=== PATIENT | female | born 1940 | race Caucasian/White ===

== ENCOUNTER 2018-04-23 16:12 | Emergency (ER) | payer MEDICARE, MEDICAID ==
[~2018-04-23] VITALS: Ht 162.6 cm; Wt 70.5 kg
[~2018-04-23 16:12] MED LIST: ASPI-612 PO; FISH1CAP15 PO; FOLI0.4T2 PO; GABA-338 PO; HYDR-565 PO; IBAN150T8 PO; ISOS30TA6 PO; LUTE20TA PO; NITR0.4T51 SL; OMEP20TA5 PO; POTA2TAB6 PO; [UNRECOGNIZED DRUG - CODE] PO; crestor PO; omega xl PO; ranexa PO; stool softner PO
[2018-04-23] MEDS ORDERED: normal saline 1000ML IV soln IVB ONE (16:35)
[2018-04-23] MEDS ORDERED: ondansetron/PF 4mg/2ml inj IV ONE (16:35)
[2018-04-23] MEDS ORDERED: aspirin 81mg tab.chew PO ONE ×2 (16:35→17:45)
[2018-04-23 16:40] VITALS: BP 146/95
[2018-04-23 16:58] LABS: BASOPHILS % (AUTO) 0.1 % (0-1); EOSINOPHILS # (AUTO) 0.1 X10'3 (0-0.9); EOSINOPHILS % (AUTO) 1.7 % (0-6); HEMOGLOBIN 13.3 g/dl (12.0-16.0); LYMPHOCYTES # (AUTO) 0.7 X10'3 (1.1-4.8); LYMPHOCYTES % (AUTO) 8.5 % (21-51); MEAN CORPUSCULAR HEMOGLOBIN 33.5 PG (27.0-31.0); MEAN CORPUSCULAR VOLUME 98.7 FL (78-98); MEAN PLATELET VOLUME 7.2 FL (7.4-10.4); MONOCYTES # (AUTO) 0.6 X10'3 (0-0.9); MONOCYTES % (AUTO) 8.1 % (2-12); NEUTROPHILS # (AUTO) 6.5 X10'3 (1.8-7.7); NEUTROPHILS % (AUTO) 81.6 % (42-75); PLATELET COUNT 256 X10'3 (140-440); RED BLOOD COUNT 3.95 X10'6 (4.20-5.60); RED CELL DISTRIBUTION WIDTH 12.2 % (11.5-14.5); WHITE BLOOD COUNT 7.9 X10'3 (4.5-11.0)
[2018-04-23 17:07] LABS: INR 0.9 INR; PROTHROMBIN TIME 9.8 SECONDS (9.0-12.0)
[2018-04-23 17:14] LABS: ALANINE AMINOTRANSFERASE 67 U/L (12-78); ALBUMIN 3.8 G/DL (3.4-5.0); ALBUMIN/GLOBULIN RATIO 1.2 (1.1-1.5); ALKALINE PHOSPHATASE 103 IU/L (46-116); ANION GAP 11 (8-16); ASPARTATE AMINO TRANSFERASE 100 U/L (10-37); BILIRUBIN,TOTAL 0.6 MG/DL (0.1-1.0); BLOOD UREA NITROGEN 16 MG/DL (7-18); BUN/CREATININE RATIO 24.6 (6.6-38.0); CHLORIDE 99 MMOL/L (99-107); CREATININE 0.65 MG/DL (0.40-0.90); GLUCOSE 105 MG/DL (70-104); POTASSIUM 3.7 MMOL/L (3.5-5.1); SODIUM 135 MMOL/L (135-145); TOTAL CARBON DIOXIDE 24.6 MMOL/L (24-32); TOTAL PROTEIN 7.1 G/DL (6.4-8.2); eGFR 88 ML/MIN
[2018-04-23] MEDS ORDERED: FAMO40TA73 PO (17:34)
[2018-04-23] MEDS ORDERED: ONDA4TAB9 PO (17:34)
[2018-04-23] MEDS ORDERED: ondansetron 4mg rapidly disintigrating tab PO ONE (17:35)
== END 2018-04-23 18:21 | disposition home or self-care (01) ==
LOC: ER 16:14
DX: R10.13 Epigastric pain (principal); R11.0 Nausea; I25.10 Atherosclerotic heart disease of native coronary artery without angina pectoris; E78.00 Pure hypercholesterolemia, unspecified; M79.7 Fibromyalgia; Z90.49 Acquired absence of other specified parts of digestive tract; Z90.710 Acquired absence of both cervix and uterus; Z95.0 Presence of cardiac pacemaker; Z88.8 Allergy status to other drugs, medicaments and biological substances; Z88.5 Allergy status to narcotic agent; Z91.041 Radiographic dye allergy status; Z79.82 Long term (current) use of aspirin; Z79.899 Other long term (current) drug therapy
CPT/HCPCS: 36415; 71045; 80053; 83880; 84484; 85025; 85610; 93005; 99285; J7030; J2405

== ENCOUNTER 2018-06-03 13:06 | Inpatient (IN) | payer MEDICARE, MEDICAID ==
[~2018-06-03] VITALS: Ht 162.6 cm; Wt 76.7 kg
[2018-06-03] VITALS (7 sets, daily range): BP systolic 119–166; BP diastolic 50–87
[~2018-06-03 13:06] MED LIST changes: +FAMO40TA73 PO; +HYDR-4353 PO; -HYDR-565 PO
[2018-06-03] MEDS ORDERED: diphenhydrAMINE 50 mg/ml inj IV ONE (13:10)
[2018-06-03] MEDS ORDERED: metoclopramide 5 mg/ml inj IV ONE (13:10)
[2018-06-03] MEDS ORDERED: normal saline 1000ML IV soln IVB ONE ×3 (13:10→15:40)
[2018-06-03 13:33] LABS: BASOPHILS % (AUTO) 0.1 % (0-1); EOSINOPHILS % (AUTO) 0.1 % (0-6); HEMATOCRIT 51.4 % (35.0-45.0); HEMOGLOBIN 16.9 g/dl (12.0-16.0); LYMPHOCYTES # (AUTO) 0.4 X10'3 (1.1-4.8); LYMPHOCYTES % (AUTO) 4.7 % (21-51); MEAN CORPUSCULAR HEMOGLOBIN 32.2 PG (27.0-31.0); MEAN CORPUSCULAR HGB CONC 32.8 % (33.0-36.5); MEAN PLATELET VOLUME 7.3 FL (7.4-10.4); MONOCYTES # (AUTO) 0.7 X10'3 (0-0.9); MONOCYTES % (AUTO) 8.5 % (2-12); NEUTROPHILS # (AUTO) 7.2 X10'3 (1.8-7.7); NEUTROPHILS % (AUTO) 86.6 % (42-75); PLATELET COUNT 256 X10'3 (140-440); RED BLOOD COUNT 5.24 X10'6 (4.20-5.60); RED CELL DISTRIBUTION WIDTH 14.1 % (11.5-14.5); WHITE BLOOD COUNT 8.3 X10'3 (4.5-11.0)
[2018-06-03 13:51] LABS: PLATELET ESTIMATE NORMAL; TOTAL CELLS COUNTED 100
[2018-06-03 13:53] LABS: ALANINE AMINOTRANSFERASE 20 U/L (12-78); ALBUMIN 3.4 G/DL (3.4-5.0); ALBUMIN/GLOBULIN RATIO 1.1 (1.1-1.5); ALKALINE PHOSPHATASE 63 IU/L (46-116); ANION GAP 17 (8-16); ASPARTATE AMINO TRANSFERASE 23 U/L (10-37); BLOOD UREA NITROGEN 31 MG/DL (7-18); BUN/CREATININE RATIO 20.5 (6.6-38.0); CALCIUM 10.4 MG/DL (8.5-10.1); CHLORIDE 97 MMOL/L (99-107); CREATININE 1.51 MG/DL (0.40-0.90); GLUCOSE 282 MG/DL (70-104); LIPASE 148 U/L (73-393); POTASSIUM 4.1 MMOL/L (3.5-5.1); SODIUM 134 MMOL/L (135-145); TOTAL CARBON DIOXIDE 19.7 MMOL/L (24-32); TOTAL PROTEIN 6.5 G/DL (6.4-8.2); eGFR 33 ML/MIN
[2018-06-03] MEDS ORDERED: CefTRIAXone 2gm/D5W 50ml 50 ML IV ONE (14:10)
[2018-06-03] MEDS ORDERED: glycopyrrolate 0.2mg/ml inj IV ONE (14:10)
[2018-06-03 14:18] LABS: CLARITY,URINE CLEAR (Clear); COLOR,URINE AMBER (Yellow); GLUCOSE, URINE NEGATIVE (Neg); KETONES,URINE TRACE mg/dl (Neg); LEUKOCYTE ESTERASE ,URINE TRACE (Neg); OCCULT BLOOD,URINE NEGATIVE (Neg); PROTEIN,URINE TRACE mg/dl (Neg)
[2018-06-03 14:31] LABS: UA COLLECTION TYPE STRAIGHT CATH
[2018-06-03] MEDS ORDERED: metroNIDAZOLE-Flagyl 500mg/NS 100 ML IV STA (14:31)
[2018-06-03 14:35] LABS: BACTERIA,URINE NONE SEEN /HPF (Neg); RBC,URINE 0-2 /HPF (0-2); SQUAMOUS EPITHELIAL CELL,UR FEW /LPF (FEW); WBC,URINE 0-4 /HPF (0-4)
[2018-06-03 14:36] LABS: HYALINE CASTS 0-3 /LPF (NEGATIVE)
[2018-06-03] MEDS ORDERED: piperacillin/tazo 3.375gm/50ml 50 ML IV STA (14:41)
[2018-06-03] MEDS ORDERED: normal saline 1000ml 1,000 ML IV SCH (15:04)
[2018-06-03] MEDS ORDERED: potassium Cl 40MEQ/NS 500ml 500 ML IV PRN ×2 (15:05)
[2018-06-03] MEDS ORDERED: HYDROmorphone 1 mg/ml syringe IV PRN (15:05)
[2018-06-03] MEDS ORDERED: magnesium hydroxide 30ml (MOM) UD suspension PO PRN ×2 (15:05→19:00)
[2018-06-03] MEDS ORDERED: acetaminophen 650mg rectal suppository RC PRN (15:05)
[2018-06-03] MEDS ORDERED: magnesium Cl slow-release 64mg tablet PO PRN ×2 (15:05→19:00)
[2018-06-03] MEDS ORDERED: magnesium 4gm in 100ml NS 100 ML IV PRN ×2 (15:05→19:00)
[2018-06-03] MEDS ORDERED: bisacodyl 10mg suppository rectal RC PRN (15:05)
[2018-06-03] MEDS ORDERED: diphenhydrAMINE 50 mg/ml inj IV PRN (15:05)
[2018-06-03] MEDS ORDERED: magnesium 1gm/100ml D5W IVPB 100 ML IV PRN ×2 (15:05→19:00)
[2018-06-03] MEDS ORDERED: potassium Cl 20 mEq SR tablet PO PRN ×4 (15:05→19:00)
[2018-06-03] MEDS ORDERED: diphenhydrAMINE 25mg capsule PO PRN (15:05)
[2018-06-03] MEDS ORDERED: metoclopramide 5 mg/ml inj IV PRN (15:05)
[2018-06-03] MEDS ORDERED: levoFLOXACIN-Levaquin 750MG/D5 150 ML IV SCH (15:05)
[2018-06-03] MEDS ORDERED: mag hydrox/Alum hydrox/simeth 30ml oral suspension PO PRN (15:05)
[2018-06-03] MEDS: K and/or MAG REPLACEMENT MC SCH (15:05)
[2018-06-03] MEDS ORDERED: loperamide 2mg capsule PO ONE (15:40)
[2018-06-03 16:08] LABS: C DIFF ANTIGEN NEGATIVE (NEGATIVE); C DIFF SPECIMEN=DIARRHEA? ACCEPTABLE; C DIFFICILE TOXINS A&B NEGATIVE (Neg)
[2018-06-03] MEDS ORDERED: ROSU5TAB11 PO (16:15)
[2018-06-03] MEDS ORDERED: PREG150C PO (16:28)
[2018-06-03] MEDS ORDERED: dextrose ORAL solution 15 GM/59 ML bottle PO PRN ×2 (17:00)
[2018-06-03] MEDS ORDERED: sodium bicarbonate (8.4%) inj. 100 MEQ in sodium chloride 0.45% 1,000 ML IV SCH (17:00)
[2018-06-03] MEDS ORDERED: dextrose 50%-water 50ml dispensing syringe IV PRN (17:00)
[2018-06-03] MEDS ORDERED: glucagon, human recombinant 1mg kit SUBCUT PRN (17:00)
[2018-06-03] MEDS ORDERED: MESSAGE TO PHARMACY PO ONE (17:00)
[2018-06-03] MEDS ORDERED: nitroGLYCERIN 0.4mg SUBLingual tab SL PRN (17:05)
[2018-06-03] MEDS ORDERED: sodium phosphate inj. 15 MMOL in dextrose 5%-water 150 ML IV PRN (19:00)
[2018-06-03] MEDS ORDERED: ondansetron/PF 4mg/2ml inj IV PRN (19:00)
[2018-06-03] MEDS ORDERED: acetaminophen 325mg tablet PO PRN ×2 (19:00)
[2018-06-03] MEDS ORDERED: sodium phosphate inj. 30 MMOL in dextrose 5%-water 250 ML IV PRN (19:00)
[2018-06-03] MEDS: ondansetron/PF 4mg/2ml inj IV PRN (19:36)
[2018-06-03] MEDS: ranolazine 500mg SR tablet (Q12H) PO SCH (20:00)
[2018-06-03] MEDS ORDERED: heparin, porcine 5000 units/ml vial SQ SCH (20:00)
[2018-06-03] MEDS ORDERED: normal saline 1000ml 1,000 ML IV ONE (20:05)
[2018-06-03] MEDS ORDERED: temazepam 15mg capsule PO PRN (21:00)
[2018-06-03] MEDS: sodium bicarbonate (8.4%) inj. 150 MEQ in dextrose 5%-water 1,000 ML IV SCH (21:18)
[2018-06-03] MEDS: pantoprazole 40 MG vial IV SCH (21:55)
[2018-06-03] MEDS: piperacillin-tazo 2.25gm/50ml 50 ML IV SCH (21:55)
[2018-06-03] MEDS: heparin, porcine 5000 units/ml vial SQ SCH (21:56)
[2018-06-03] MEDS: insulin glargine (Lantus) pen - multi-dose SQ SCH (22:00)
[2018-06-04] VITALS (31 sets, daily range): BP systolic 81–168; BP diastolic 48–82
[2018-06-04] MEDS: metroNIDAZOLE-Flagyl 500mg/NS 100 ML IV SCH ×2 (00:17→08:12)
[2018-06-04] MEDS: piperacillin-tazo 2.25gm/50ml 50 ML IV SCH ×3 (02:30→20:38)
[2018-06-04] MEDS: insulin Lispro (HumaLOG) vial - multi-dose SQ SCH ×2 (02:32→08:21)
[2018-06-04 02:43] LABS: BASOPHILS % (AUTO) 0 % (0-1); EOSINOPHILS % (AUTO) 0.1 % (0-6); HEMATOCRIT 47.1 % (35.0-45.0); HEMOGLOBIN 15.7 g/dl (12.0-16.0); LYMPHOCYTES # (AUTO) 0.4 X10'3 (1.1-4.8); LYMPHOCYTES % (AUTO) 5.1 % (21-51); MEAN CORPUSCULAR HEMOGLOBIN 32.8 PG (27.0-31.0); MEAN CORPUSCULAR HGB CONC 33.3 % (33.0-36.5); MEAN CORPUSCULAR VOLUME 98.3 FL (78-98); MEAN PLATELET VOLUME 7.9 FL (7.4-10.4); MONOCYTES # (AUTO) 1.1 X10'3 (0-0.9); MONOCYTES % (AUTO) 12.7 % (2-12); NEUTROPHILS # (AUTO) 7.2 X10'3 (1.8-7.7); NEUTROPHILS % (AUTO) 82.1 % (42-75); PLATELET COUNT 234 X10'3 (140-440); RED BLOOD COUNT 4.79 X10'6 (4.20-5.60); RED CELL DISTRIBUTION WIDTH 13.5 % (11.5-14.5); WHITE BLOOD COUNT 8.8 X10'3 (4.5-11.0)
[2018-06-04 03:04] LABS: HEMOGLOBIN A1C 6.1 % (4.5-6.2)
[2018-06-04 03:16] LABS: ALANINE AMINOTRANSFERASE 13 U/L (12-78); ALBUMIN 2.3 G/DL (3.4-5.0); ALBUMIN/GLOBULIN RATIO 0.8 (1.1-1.5); ALKALINE PHOSPHATASE 40 IU/L (46-116); ANION GAP 13 (8-16); ASPARTATE AMINO TRANSFERASE 16 U/L (10-37); BILIRUBIN,TOTAL 0.5 MG/DL (0.1-1.0); BLOOD UREA NITROGEN 25 MG/DL (7-18); BUN/CREATININE RATIO 20.7 (6.6-38.0); CALCIUM 7.7 MG/DL (8.5-10.1); CHLORIDE 104 MMOL/L (99-107); CREATININE 1.21 MG/DL (0.40-0.90); GLUCOSE 325 MG/DL (70-104); MAGNESIUM 3.2 MG/DL (1.5-2.4); PHOSPHORUS 4.4 MG/DL (2.3-4.5); POTASSIUM 3.8 MMOL/L (3.5-5.1); SODIUM 138 MMOL/L (135-145); TOTAL CARBON DIOXIDE 21.3 MMOL/L (24-32); TOTAL PROTEIN 5.3 G/DL (6.4-8.2); eGFR 43 ML/MIN
[2018-06-04 03:55] LABS: TOTAL CELLS COUNTED 100
[2018-06-04 03:56] LABS: PLATELET ESTIMATE NORMAL; TOXIC GRANULATION 1+; TOXIC VACUOLATION 1+
[2018-06-04] MEDS: pregabalin 75mg capsule PO SCH (08:00)
[2018-06-04] MEDS: K and/or MAG REPLACEMENT MC SCH (08:00)
[2018-06-04] MEDS: ranolazine 500mg SR tablet (Q12H) PO SCH ×2 (08:00→20:00)
[2018-06-04] MEDS: atorvastatin 20mg tablet PO SCH (08:00)
[2018-06-04] MEDS: isosorbide mononitrate 30mg tab.SR.24H PO SCH (08:00)
[2018-06-04] MEDS: HYDROmorphone 1 mg/ml syringe IV PRN ×2 (08:11→18:56)
[2018-06-04] MEDS: heparin, porcine 5000 units/ml vial SQ SCH ×2 (08:11→20:00)
[2018-06-04] MEDS: pantoprazole 40 MG vial IV SCH (08:11)
[2018-06-04] MEDS: sodium bicarbonate (8.4%) inj. 150 MEQ in dextrose 5%-water 1,000 ML IV SCH (08:12)
[2018-06-04] MEDS: normal saline 1000ml 1,000 ML IV SCH ×2 (13:32→20:12)
[2018-06-04] MEDS ORDERED: LIDOcaine 1% (10mg/ml) 2ml vial ONE (14:09)
[2018-06-04] MEDS ORDERED: fentaNYL /PF 50mcg/ml 5ml ampule ONE (16:13)
[2018-06-04] MEDS ORDERED: midazolam 2 mg/2 ml injection ONE (16:13)
[2018-06-04] MEDS ORDERED: propofol inj 20 ML IV ONE (16:13)
[2018-06-04] MEDS ORDERED: rocuronium 10mg/ml inj IV ONE (16:13)
[2018-06-04] MEDS ORDERED: NORepinephrine bitartrate 8 MG in NS 250 ML BAG (32 mcg/ml) IV ONE (16:21)
[2018-06-04] MEDS ORDERED: sevoflurane 250ml liquid IH ONE (16:21)
[2018-06-04] MEDS ORDERED: NORepinephrine 1 mg/ml inj IV ONE (17:00)
[2018-06-04] MEDS ORDERED: NORepinephrine 8mg/ 250ml NS 250 ML IV ONE (17:00)
[2018-06-04] MEDS ORDERED: normal saline 1000ml 1,000 ML IV ONE (17:27)
[2018-06-04] MEDS ORDERED: ondansetron/PF 4mg/2ml inj IV PRN (17:30)
[2018-06-04] MEDS ORDERED: HYDROmorphone inj. 0.5 MG/0.5 ML DISP.SYRIN IV PRN ×2 (17:30)
[2018-06-04] MEDS ORDERED: phenylephrine 10mg/ml inj. ONE (17:42)
[2018-06-04 18:56] LABS: ABG BASE EXCESS -3.3 mmol/L (-2.0-3.0); ABG HCO3 20.3 mmol/L (22.0-26.0); ABG OXYGEN SATURATION 98.9 % (95-98); ABG PCO2 (T) 32.1 mmHg (32.0-45.0); ABG PH (T) 7.417 (7.350-7.450); ABG PO2 (T) 161.6 mmHg (83-108); ALLEN'S TEST Positive; FCOHb 0.7 % (0.5-1.5); FO2Hb 98.2 % (94-100); MINUTE VOLUME 6 L/min; PATIENT TEMPERATURE 36.7; PEEP 5 cm H2O; RESPIRATORY RATE 12 b/min; RESPIRATORY RATE (OBSERVED) 13 b/min; TIDAL VOLUME 500 mL; TOTAL HEMOGLOBIN 14.2 G/dl (12.0-16.0)
[2018-06-04] MEDS: fluconazole-Diflucan 200mg/NS 100 ML IV SCH (18:56)
[2018-06-04] MEDS: midazolam 100mg in NS 100ml 100 ML IV PRN (19:25)
[2018-06-04] MEDS: FENTANYL-0.9 % NACL/PF 100 ML IV PRN (19:26)
[2018-06-04] MEDS: insulin glargine (Lantus) pen - multi-dose SQ SCH (21:00)
[2018-06-05] VITALS (24 sets, daily range): BP systolic 90–134; BP diastolic 49–65
[2018-06-05] MEDS: normal saline 1000ml 1,000 ML IV SCH ×4 (02:06→20:36)
[2018-06-05] MEDS: piperacillin-tazo 2.25gm/50ml 50 ML IV SCH ×4 (02:08→20:29)
[2018-06-05 03:13] LABS: HEMATOCRIT 38.5 % (35.0-45.0); MEAN CORPUSCULAR HEMOGLOBIN 33.2 PG (27.0-31.0); MEAN CORPUSCULAR HGB CONC 33.8 % (33.0-36.5); MEAN CORPUSCULAR VOLUME 98.4 FL (78-98); MEAN PLATELET VOLUME 8.6 FL (7.4-10.4); NEUTROPHILS % (AUTO) 80.2 % (42-75); PLATELET COUNT 175 X10'3 (140-440); RED CELL DISTRIBUTION WIDTH 13.3 % (11.5-14.5)
[2018-06-05 03:14] LABS: BASOPHILS % (AUTO) 0.1 % (0-1); EOSINOPHILS % (AUTO) 0 % (0-6); LYMPHOCYTES # (AUTO) 0.7 X10'3 (1.1-4.8); MONOCYTES # (AUTO) 0.4 X10'3 (0-0.9); MONOCYTES % (AUTO) 7.7 % (2-12); NEUTROPHILS # (AUTO) 4.6 X10'3 (1.8-7.7); RED BLOOD COUNT 3.92 X10'6 (4.20-5.60); WHITE BLOOD COUNT 5.7 X10'3 (4.5-11.0)
[2018-06-05 03:23] LABS: ALANINE AMINOTRANSFERASE 11 U/L (12-78); ALBUMIN 1.8 G/DL (3.4-5.0); ALBUMIN/GLOBULIN RATIO 0.7 (1.1-1.5); ALKALINE PHOSPHATASE 29 IU/L (46-116); ANION GAP 11 (8-16); ASPARTATE AMINO TRANSFERASE 19 U/L (10-37); BILIRUBIN,TOTAL 0.4 MG/DL (0.1-1.0); BLOOD UREA NITROGEN 22 MG/DL (7-18); BUN/CREATININE RATIO 29.3 (6.6-38.0); CALCIUM 6.8 MG/DL (8.5-10.1); CHLORIDE 110 MMOL/L (99-107); CREATININE 0.75 MG/DL (0.40-0.90); GLUCOSE 118 MG/DL (70-104); MAGNESIUM 2.6 MG/DL (1.5-2.4); PHOSPHORUS 2.7 MG/DL (2.3-4.5); POTASSIUM 3.6 MMOL/L (3.5-5.1); SODIUM 143 MMOL/L (135-145); TOTAL CARBON DIOXIDE 22.2 MMOL/L (24-32); TOTAL PROTEIN 4.5 G/DL (6.4-8.2); eGFR 75 ML/MIN
[2018-06-05] MEDS ORDERED: albumin (Human) 5% 250ml BOTTLE IV STA (03:54)
[2018-06-05 04:57] LABS: PLATELET ESTIMATE NORMAL; POLYCHROMASIA FEW; TOTAL CELLS COUNTED 100
[2018-06-05 04:58] LABS: BURR CELLS 2+; TOXIC VACUOLATION FEW
[2018-06-05] MEDS: isosorbide mononitrate 30mg tab.SR.24H PO SCH (08:00)
[2018-06-05] MEDS: ranolazine 500mg SR tablet (Q12H) PO SCH ×2 (08:00→20:00)
[2018-06-05] MEDS: K and/or MAG REPLACEMENT MC SCH (08:00)
[2018-06-05] MEDS: pregabalin 75mg capsule PO SCH (08:00)
[2018-06-05] MEDS: atorvastatin 20mg tablet PO SCH (08:00)
[2018-06-05] MEDS: pantoprazole 40 MG vial IV SCH (08:20)
[2018-06-05] MEDS: heparin, porcine 5000 units/ml vial SQ SCH (08:22)
[2018-06-05] MEDS: fluconazole-Diflucan 200mg/NS 100 ML IV SCH (09:00)
[2018-06-05] MEDS ORDERED: Potassium Cl inj 40 MEQ in normal saline 250ml IV soln 230 ML IV ONE (10:15)
[2018-06-05] MEDS ORDERED: Dextrose 10%-water IV solution 1,000 ML IV PRN (12:19)
[2018-06-05] MEDS ORDERED: fat emulsion IV 100 ML, MVI, adult No.4 with vit. K 5 ML, Trace element-5 inj. 0.5 ML i... IV SCH ×4 (12:19)
[2018-06-05] MEDS ORDERED: magnesium 4gm in 100ml NS 100 ML IV PRN (12:20)
[2018-06-05] MEDS ORDERED: magnesium 1gm/100ml D5W IVPB 100 ML IV PRN (12:20)
[2018-06-05] MEDS ORDERED: magnesium Cl slow-release 64mg tablet PO PRN (12:20)
[2018-06-05] MEDS: FENTANYL-0.9 % NACL/PF 100 ML IV PRN (12:39)
[2018-06-05 14:42] LABS: ALANINE AMINOTRANSFERASE 7 U/L (12-78); ALBUMIN 2.2 G/DL (3.4-5.0); ALBUMIN/GLOBULIN RATIO 0.9 (1.1-1.5); ALKALINE PHOSPHATASE 26 IU/L (46-116); ANION GAP 14 (8-16); ASPARTATE AMINO TRANSFERASE 15 U/L (10-37); BILIRUBIN,TOTAL 0.6 MG/DL (0.1-1.0); BLOOD UREA NITROGEN 18 MG/DL (7-18); BUN/CREATININE RATIO 25.4 (6.6-38.0); CALCIUM 6.9 MG/DL (8.5-10.1); CHLORIDE 111 MMOL/L (99-107); CREATININE 0.71 MG/DL (0.40-0.90); GLUCOSE 98 MG/DL (70-104); MAGNESIUM 2.5 MG/DL (1.5-2.4); PHOSPHORUS 1.5 MG/DL (2.3-4.5); PREALBUMIN 10.2 MG/DL (19-36); SODIUM 143 MMOL/L (135-145); TOTAL CARBON DIOXIDE 18.5 MMOL/L (24-32); TOTAL PROTEIN 4.7 G/DL (6.4-8.2); TRIGLYCERIDES 121 MG/DL (20-135); eGFR 79 ML/MIN
[2018-06-05] MEDS: fat emulsion IV 100 ML, MVI, adult No.4 with vit. K 5 ML, Trace element-5 inj. 0.5 ML i... IV SCH ×4 (18:59)
[2018-06-05] MEDS: lactobacillus rhamnosus 10,000 MMU CELLS/CAPSULE PO SCH (20:00)
[2018-06-05] MEDS: enoxaparin 40mg/0.4ml syringe SUBCUT SCH (20:29)
[2018-06-05] MEDS: enoxaparin 30mg/0.3ml syringe SUBCUT SCH (20:29)
[2018-06-05] MEDS ORDERED: DOPamine 400mg/D5W 250ml 250 ML IV ONE (20:32)
[2018-06-05] MEDS: insulin glargine (Lantus) pen - multi-dose SQ SCH (21:00)
[2018-06-05] MEDS ORDERED: sodium phosphate inj. 30 MMOL in dextrose 5%-water 250 ML IV PRN (21:15)
[2018-06-05] MEDS ORDERED: sodium phosphate inj. 15 MMOL in dextrose 5%-water 150 ML IV PRN (21:15)
[2018-06-06] VITALS (24 sets, daily range): BP systolic 86–151; BP diastolic 51–150
[2018-06-06] MEDS: piperacillin-tazo 2.25gm/50ml 50 ML IV SCH ×4 (02:36→20:01)
[2018-06-06 03:48] LABS: BASOPHILS % (AUTO) 0.1 % (0-1); HEMOGLOBIN 10.6 g/dl (12.0-16.0); RED BLOOD COUNT 3.13 X10'6 (4.20-5.60)
[2018-06-06 03:54] LABS: EOSINOPHILS % (AUTO) 0.2 % (0-6); HEMATOCRIT 30.4 % (35.0-45.0); LYMPHOCYTES # (AUTO) 0.6 X10'3 (1.1-4.8); LYMPHOCYTES % (AUTO) 5.9 % (21-51); MEAN CORPUSCULAR HEMOGLOBIN 33.8 PG (27.0-31.0); MEAN CORPUSCULAR HGB CONC 34.9 % (33.0-36.5); MEAN CORPUSCULAR VOLUME 97.1 FL (78-98); MEAN PLATELET VOLUME 8.6 FL (7.4-10.4); MONOCYTES # (AUTO) 0.4 X10'3 (0-0.9); NEUTROPHILS # (AUTO) 8.9 X10'3 (1.8-7.7); NEUTROPHILS % (AUTO) 89.8 % (42-75); PLATELET COUNT 139 X10'3 (140-440); RED CELL DISTRIBUTION WIDTH 13.1 % (11.5-14.5); WHITE BLOOD COUNT 9.9 X10'3 (4.5-11.0)
[2018-06-06 03:59] LABS: ALANINE AMINOTRANSFERASE 12 U/L (12-78); ALBUMIN 1.9 G/DL (3.4-5.0); ALBUMIN/GLOBULIN RATIO 0.7 (1.1-1.5); ALKALINE PHOSPHATASE 35 IU/L (46-116); ANION GAP 13 (8-16); ASPARTATE AMINO TRANSFERASE 15 U/L (10-37); BILIRUBIN,TOTAL 0.6 MG/DL (0.1-1.0); BLOOD UREA NITROGEN 18 MG/DL (7-18); BUN/CREATININE RATIO 23.1 (6.6-38.0); CALCIUM 7.4 MG/DL (8.5-10.1); CHLORIDE 110 MMOL/L (99-107); CREATININE 0.78 MG/DL (0.40-0.90); GLUCOSE 164 MG/DL (70-104); MAGNESIUM 2.3 MG/DL (1.5-2.4); PHOSPHORUS 2.6 MG/DL (2.3-4.5); POTASSIUM 3.1 MMOL/L (3.5-5.1); SODIUM 144 MMOL/L (135-145); TOTAL CARBON DIOXIDE 20.7 MMOL/L (24-32); TOTAL PROTEIN 4.5 G/DL (6.4-8.2); eGFR 71 ML/MIN
[2018-06-06 04:15] LABS: TOTAL CELLS COUNTED 100
[2018-06-06 04:16] LABS: PLATELET ESTIMATE DECREASED; TOXIC GRANULATION 1+; TOXIC VACUOLATION FEW
[2018-06-06 04:17] LABS: BURR CELLS FEW
[2018-06-06 04:26] LABS: ABG BASE EXCESS -5.8 mmol/L (-2.0-3.0); ABG HCO3 15.5 mmol/L (22.0-26.0); ABG OXYGEN SATURATION 98.1 % (95-98); ABG PCO2 (T) 20.5 mmHg (32.0-45.0); ABG PH (T) 7.498 (7.350-7.450); FCOHb 0.3 % (0.5-1.5); FMetHb 0.3 % (0.3-1.12); FO2Hb 97.5 % (94-100); MINUTE VOLUME 10 L/min; PATIENT TEMPERATURE 37.5; PEEP 5 cm H2O; RESPIRATORY RATE 18 b/min; RESPIRATORY RATE (OBSERVED) 18 b/min; TIDAL VOLUME 500 mL; TOTAL HEMOGLOBIN 10.7 G/dl (12.0-16.0)
[2018-06-06] MEDS: normal saline 1000ml 1,000 ML IV SCH ×4 (05:32→20:03)
[2018-06-06] MEDS: fat emulsion IV 100 ML, MVI, adult No.4 with vit. K 5 ML, Trace element-5 inj. 0.5 ML i... IV SCH ×12 (06:17→18:34)
[2018-06-06] MEDS: enoxaparin 30mg/0.3ml syringe SUBCUT SCH ×2 (07:22→20:02)
[2018-06-06] MEDS: atorvastatin 20mg tablet PO SCH (07:23)
[2018-06-06] MEDS: lactobacillus rhamnosus 10,000 MMU CELLS/CAPSULE PO SCH ×2 (07:23→20:02)
[2018-06-06] MEDS: enoxaparin 40mg/0.4ml syringe SUBCUT SCH ×2 (07:23→20:02)
[2018-06-06] MEDS: fluconazole-Diflucan 200mg/NS 100 ML IV SCH (07:24)
[2018-06-06] MEDS: pantoprazole 40 MG vial IV SCH (07:24)
[2018-06-06] MEDS: K and/or MAG REPLACEMENT MC SCH (07:25)
[2018-06-06] MEDS: isosorbide mononitrate 30mg tab.SR.24H PO SCH (07:26)
[2018-06-06] MEDS: ranolazine 500mg SR tablet (Q12H) PO SCH (07:26)
[2018-06-06] MEDS: pregabalin 75mg capsule PO SCH (07:26)
[2018-06-06] MEDS ORDERED: ipratropium/albuterol 3ml nebule NEB PRN (11:00)
[2018-06-06] MEDS ORDERED: CADD PCA waste documentation MC PRN (11:00)
[2018-06-06] MEDS: HYDROmorphone/NS 1 mg/ml CADD 50 ML IV SCH ×7 (11:00→23:00)
[2018-06-06] MEDS ORDERED: racepinephrine 11.25mg/0.5ml nebule NEB PRN (11:00)
[2018-06-06] MEDS ORDERED: naloxone 0.4 mg/ml inj IV PRN (11:00)
[2018-06-06] MEDS: ipratropium/albuterol 3ml nebule NEB SCH ×2 (15:00→21:00)
[2018-06-06] MEDS: insulin regular, human vial - multi-dose SQ SCH ×2 (16:14→20:22)
[2018-06-06] MEDS ORDERED: docusate sod 100mg capsule PO SCH (20:00)
[2018-06-06] MEDS: sennosides/docusate sodium tablet PO SCH (20:02)
[2018-06-06] MEDS: FENTANYL-0.9 % NACL/PF 100 ML IV PRN (20:04)
[2018-06-06] MEDS: insulin glargine (Lantus) pen - multi-dose SQ SCH (20:20)
[2018-06-07] VITALS (24 sets, daily range): BP systolic 96–157; BP diastolic 50–90
[2018-06-07] MEDS: midazolam 100mg in NS 100ml 100 ML IV PRN (00:09)
[2018-06-07] MEDS: HYDROmorphone/NS 1 mg/ml CADD 50 ML IV SCH ×9 (01:00→15:05)
[2018-06-07] MEDS: normal saline 1000ml 1,000 ML IV SCH ×2 (01:46→08:12)
[2018-06-07] MEDS: piperacillin-tazo 2.25gm/50ml 50 ML IV SCH ×4 (02:39→20:47)
[2018-06-07] MEDS: insulin regular, human vial - multi-dose SQ SCH ×4 (02:47→20:57)
[2018-06-07 03:23] LABS: ALANINE AMINOTRANSFERASE 7 U/L (12-78); ALBUMIN 1.5 G/DL (3.4-5.0); ALBUMIN/GLOBULIN RATIO 0.6 (1.1-1.5); ALKALINE PHOSPHATASE 38 IU/L (46-116); ANION GAP 8 (8-16); ASPARTATE AMINO TRANSFERASE 10 U/L (10-37); BILIRUBIN,TOTAL 0.3 MG/DL (0.1-1.0); BLOOD UREA NITROGEN 19 MG/DL (7-18); BUN/CREATININE RATIO 32.2 (6.6-38.0); CALCIUM 7.7 MG/DL (8.5-10.1); CHLORIDE 112 MMOL/L (99-107); CREATININE 0.59 MG/DL (0.40-0.90); GLUCOSE 211 MG/DL (70-104); MAGNESIUM 1.7 MG/DL (1.5-2.4); PHOSPHORUS 1.6 MG/DL (2.3-4.5); POTASSIUM 3.3 MMOL/L (3.5-5.1); SODIUM 143 MMOL/L (135-145); TOTAL CARBON DIOXIDE 23.1 MMOL/L (24-32); TOTAL PROTEIN 4.2 G/DL (6.4-8.2); eGFR > 90 ML/MIN
[2018-06-07 03:35] LABS: BASOPHILS % (AUTO) 0.1 % (0-1); EOSINOPHILS # (AUTO) 0.1 X10'3 (0-0.9); EOSINOPHILS % (AUTO) 1.5 % (0-6); HEMATOCRIT 28.9 % (35.0-45.0); HEMOGLOBIN 9.8 g/dl (12.0-16.0); LYMPHOCYTES # (AUTO) 0.7 X10'3 (1.1-4.8); LYMPHOCYTES % (AUTO) 7.9 % (21-51); MEAN CORPUSCULAR HEMOGLOBIN 33.2 PG (27.0-31.0); MEAN CORPUSCULAR HGB CONC 33.8 % (33.0-36.5); MEAN CORPUSCULAR VOLUME 98.2 FL (78-98); MEAN PLATELET VOLUME 8.2 FL (7.4-10.4); MONOCYTES # (AUTO) 0.6 X10'3 (0-0.9); MONOCYTES % (AUTO) 6.5 % (2-12); NEUTROPHILS # (AUTO) 7.3 X10'3 (1.8-7.7); PLATELET COUNT 139 X10'3 (140-440); RED BLOOD COUNT 2.94 X10'6 (4.20-5.60); RED CELL DISTRIBUTION WIDTH 13.6 % (11.5-14.5); WHITE BLOOD COUNT 8.7 X10'3 (4.5-11.0)
[2018-06-07] MEDS: ipratropium/albuterol 3ml nebule NEB SCH ×4 (04:11→21:05)
[2018-06-07 04:25] LABS: ABG BASE EXCESS -5.4 mmol/L (-2.0-3.0); ABG HCO3 18.1 mmol/L (22.0-26.0); ABG OXYGEN SATURATION 96.3 % (95-98); ABG PCO2 (T) 28.7 mmHg (32.0-45.0); ABG PH (T) 7.418 (7.350-7.450); ABG PO2 (T) 88.5 mmHg (83-108); ALLEN'S TEST Positive; FCOHb 0.1 % (0.5-1.5); FMetHb 0.3 % (0.3-1.12); FO2Hb 95.9 % (94-100); MINUTE VOLUME 8 L/min; PEEP 5 cm H2O; RESPIRATORY RATE (OBSERVED) 18 b/min; TOTAL HEMOGLOBIN 10.1 G/dl (12.0-16.0)
[2018-06-07] MEDS: potassium Cl 40MEQ/250ML bag 250 ML IV PRN (05:11)
[2018-06-07] MEDS: fat emulsion IV 100 ML, MVI, adult No.4 with vit. K 5 ML, Trace element-5 inj. 0.5 ML i... IV SCH ×16 (05:32→19:08)
[2018-06-07] MEDS: isosorbide mononitrate 30mg tab.SR.24H PO SCH (06:49)
[2018-06-07] MEDS: enoxaparin 40mg/0.4ml syringe SUBCUT SCH ×2 (07:56→20:50)
[2018-06-07] MEDS: lactobacillus rhamnosus 10,000 MMU CELLS/CAPSULE PO SCH ×2 (07:57→20:49)
[2018-06-07] MEDS: pregabalin 75mg capsule PO SCH (07:57)
[2018-06-07] MEDS: enoxaparin 30mg/0.3ml syringe SUBCUT SCH ×2 (07:57→20:50)
[2018-06-07] MEDS: atorvastatin 20mg tablet PO SCH (07:57)
[2018-06-07] MEDS: fluconazole-Diflucan 200mg/NS 100 ML IV SCH (07:57)
[2018-06-07] MEDS: pantoprazole 40 MG vial IV SCH (07:57)
[2018-06-07] MEDS: sennosides/docusate sodium tablet PO SCH ×2 (07:58→20:00)
[2018-06-07] MEDS: K and/or MAG REPLACEMENT MC SCH (08:00)
[2018-06-07] MEDS ORDERED: magnesium 1gm/100ml D5W IVPB 100 ML IV ONE (09:45)
[2018-06-07] MEDS ORDERED: furosemide 20 MG/2 ML vial IV ONE (09:45)
[2018-06-07] MEDS: metoprolol tartrate 12.5mg (1/2 tablet) PO SCH ×2 (10:35→20:48)
[2018-06-07] MEDS: insulin glargine (Lantus) pen - multi-dose SQ SCH (20:59)
[2018-06-07] MEDS: FENTANYL-0.9 % NACL/PF 100 ML IV PRN (22:15)
[2018-06-08] VITALS (24 sets, daily range): BP systolic 85–187; BP diastolic 56–99
[2018-06-08] MEDS: piperacillin-tazo 2.25gm/50ml 50 ML IV SCH ×4 (02:53→20:37)
[2018-06-08] MEDS: insulin regular, human vial - multi-dose SQ SCH ×4 (02:57→20:43)
[2018-06-08 03:03] LABS: BASOPHILS % (AUTO) 0.1 % (0-1); EOSINOPHILS # (AUTO) 0.1 X10'3 (0-0.9); EOSINOPHILS % (AUTO) 1.1 % (0-6); HEMOGLOBIN 9.7 g/dl (12.0-16.0); LYMPHOCYTES # (AUTO) 0.6 X10'3 (1.1-4.8); LYMPHOCYTES % (AUTO) 6.7 % (21-51); MEAN CORPUSCULAR HEMOGLOBIN 33.5 PG (27.0-31.0); MEAN CORPUSCULAR HGB CONC 34.6 % (33.0-36.5); MEAN CORPUSCULAR VOLUME 96.8 FL (78-98); MEAN PLATELET VOLUME 8.2 FL (7.4-10.4); MONOCYTES # (AUTO) 1.1 X10'3 (0-0.9); MONOCYTES % (AUTO) 12.1 % (2-12); PLATELET COUNT 162 X10'3 (140-440); RED CELL DISTRIBUTION WIDTH 13.6 % (11.5-14.5); WHITE BLOOD COUNT 8.8 X10'3 (4.5-11.0)
[2018-06-08] MEDS: ipratropium/albuterol 3ml nebule NEB SCH ×4 (03:12→21:16)
[2018-06-08 03:20] LABS: ALANINE AMINOTRANSFERASE 8 U/L (12-78); ALBUMIN 1.5 G/DL (3.4-5.0); ALBUMIN/GLOBULIN RATIO 0.5 (1.1-1.5); ALKALINE PHOSPHATASE 60 IU/L (46-116); ANION GAP 8 (8-16); ASPARTATE AMINO TRANSFERASE 11 U/L (10-37); BILIRUBIN,TOTAL 0.3 MG/DL (0.1-1.0); BLOOD UREA NITROGEN 21 MG/DL (7-18); BUN/CREATININE RATIO 31.3 (6.6-38.0); CALCIUM 8.4 MG/DL (8.5-10.1); CHLORIDE 108 MMOL/L (99-107); CREATININE 0.67 MG/DL (0.40-0.90); GLUCOSE 177 MG/DL (70-104); MAGNESIUM 1.6 MG/DL (1.5-2.4); PHOSPHORUS 3.1 MG/DL (2.3-4.5); POTASSIUM 3.5 MMOL/L (3.5-5.1); SODIUM 141 MMOL/L (135-145); TOTAL CARBON DIOXIDE 24.9 MMOL/L (24-32); TOTAL PROTEIN 4.6 G/DL (6.4-8.2); eGFR 85 ML/MIN
[2018-06-08 03:31] LABS: ABG BASE EXCESS -2.2 mmol/L (-2.0-3.0); ABG OXYGEN SATURATION 94.1 % (95-98); ABG PCO2 (T) 30.2 mmHg (32.0-45.0); ABG PH (T) 7.458 (7.350-7.450); ABG PO2 (T) 66.5 mmHg (83-108); ALLEN'S TEST Positive; FCOHb 0.2 % (0.5-1.5); FMetHb 0.3 % (0.3-1.12); FO2Hb 93.6 % (94-100); MINUTE VOLUME 9 L/min; PATIENT TEMPERATURE 36.8; PEEP 5 cm H2O; RESPIRATORY RATE (OBSERVED) 19 b/min; TOTAL HEMOGLOBIN 10.6 G/dl (12.0-16.0)
[2018-06-08] MEDS ORDERED: metoprolol tartrate 1mg/ml inj IV ONE (04:05)
[2018-06-08] MEDS: fat emulsion IV 100 ML, MVI, adult No.4 with vit. K 5 ML, Trace element-5 inj. 0.5 ML i... IV SCH ×8 (05:43→19:19)
[2018-06-08] MEDS: pantoprazole 40 MG vial IV SCH (07:24)
[2018-06-08] MEDS: metoprolol tartrate 12.5mg (1/2 tablet) PO SCH (07:25)
[2018-06-08] MEDS: sennosides/docusate sodium tablet PO SCH ×2 (07:25→20:38)
[2018-06-08] MEDS: atorvastatin 20mg tablet PO SCH (07:25)
[2018-06-08] MEDS: pregabalin 75mg capsule PO SCH (07:25)
[2018-06-08] MEDS: isosorbide mononitrate 30mg tab.SR.24H PO SCH (07:25)
[2018-06-08] MEDS: lactobacillus rhamnosus 10,000 MMU CELLS/CAPSULE PO SCH ×2 (07:25→20:37)
[2018-06-08] MEDS: enoxaparin 30mg/0.3ml syringe SUBCUT SCH ×2 (07:27→20:39)
[2018-06-08] MEDS: enoxaparin 40mg/0.4ml syringe SUBCUT SCH ×2 (07:27→20:38)
[2018-06-08] MEDS: fluconazole-Diflucan 200mg/NS 100 ML IV SCH (07:33)
[2018-06-08 07:39] LABS: PLATELET ESTIMATE NORMAL; TOTAL CELLS COUNTED 100
[2018-06-08 07:40] LABS: POLYCHROMASIA FEW
[2018-06-08] MEDS: K and/or MAG REPLACEMENT MC SCH (08:00)
[2018-06-08] MEDS ORDERED: furosemide 20 MG/2 ML vial IV ONE (09:15)
[2018-06-08] MEDS ORDERED: metoprolol tartrate 12.5mg (1/2 tablet) PO ONE (09:15)
[2018-06-08] MEDS: esmolol/sodium cl bag 250 ML IV SCH ×4 (11:14→20:45)
[2018-06-08] MEDS: normal saline 1000ml 1,000 ML IV SCH (11:15)
[2018-06-08] MEDS: metoprolol tartrate 25mg tablet PO SCH (20:37)
[2018-06-08] MEDS: insulin glargine (Lantus) pen - multi-dose SQ SCH (21:01)
[2018-06-09] VITALS (24 sets, daily range): BP systolic 134–189; BP diastolic 63–102
[2018-06-09] MEDS: piperacillin-tazo 2.25gm/50ml 50 ML IV SCH ×2 (02:35→07:34)
[2018-06-09] MEDS: esmolol/sodium cl bag 250 ML IV SCH ×3 (02:39→12:43)
[2018-06-09 02:57] LABS: BASOPHILS % (AUTO) 0.1 % (0-1); EOSINOPHILS # (AUTO) 0.2 X10'3 (0-0.9); EOSINOPHILS % (AUTO) 1.6 % (0-6); HEMATOCRIT 27.7 % (35.0-45.0); HEMOGLOBIN 9.4 g/dl (12.0-16.0); LYMPHOCYTES # (AUTO) 0.9 X10'3 (1.1-4.8); LYMPHOCYTES % (AUTO) 6.9 % (21-51); MEAN CORPUSCULAR HEMOGLOBIN 32.9 PG (27.0-31.0); MEAN CORPUSCULAR HGB CONC 33.8 % (33.0-36.5); MEAN CORPUSCULAR VOLUME 97.4 FL (78-98); MEAN PLATELET VOLUME 9.4 FL (7.4-10.4); MONOCYTES # (AUTO) 1.2 X10'3 (0-0.9); MONOCYTES % (AUTO) 8.5 % (2-12); NEUTROPHILS # (AUTO) 11.3 X10'3 (1.8-7.7); NEUTROPHILS % (AUTO) 82.9 % (42-75); PLATELET COUNT 185 X10'3 (140-440); RED BLOOD COUNT 2.85 X10'6 (4.20-5.60); RED CELL DISTRIBUTION WIDTH 13.4 % (11.5-14.5); WHITE BLOOD COUNT 13.6 X10'3 (4.5-11.0)
[2018-06-09] MEDS: ipratropium/albuterol 3ml nebule NEB SCH ×4 (03:14→21:49)
[2018-06-09 03:19] LABS: ALANINE AMINOTRANSFERASE 26 U/L (12-78); ALBUMIN 1.5 G/DL (3.4-5.0); ALBUMIN/GLOBULIN RATIO 0.4 (1.1-1.5); ALKALINE PHOSPHATASE 134 IU/L (46-116); ANION GAP 10 (8-16); ASPARTATE AMINO TRANSFERASE 46 U/L (10-37); BILIRUBIN,TOTAL 0.6 MG/DL (0.1-1.0); BLOOD UREA NITROGEN 21 MG/DL (7-18); BUN/CREATININE RATIO 37.5 (6.6-38.0); CALCIUM 8.7 MG/DL (8.5-10.1); CHLORIDE 106 MMOL/L (99-107); CREATININE 0.56 MG/DL (0.40-0.90); GLUCOSE 131 MG/DL (70-104); MAGNESIUM 1.6 MG/DL (1.5-2.4); PHOSPHORUS 3.6 MG/DL (2.3-4.5); POTASSIUM 3.3 MMOL/L (3.5-5.1); PREALBUMIN 12.9 MG/DL (19-36); SODIUM 140 MMOL/L (135-145); TOTAL CARBON DIOXIDE 24.2 MMOL/L (24-32); TOTAL PROTEIN 4.9 G/DL (6.4-8.2); TRIGLYCERIDES 117 MG/DL (20-135); eGFR > 90 ML/MIN
[2018-06-09 03:38] LABS: TOTAL CELLS COUNTED 100
[2018-06-09 03:39] LABS: PLATELET ESTIMATE NORMAL; TOXIC GRANULATION 1+
[2018-06-09] MEDS: potassium Cl 40MEQ/250ML bag 250 ML IV PRN (05:18)
[2018-06-09] MEDS: fat emulsion IV 100 ML, MVI, adult No.4 with vit. K 5 ML, Trace element-5 inj. 0.5 ML i... IV SCH ×8 (06:59→18:41)
[2018-06-09] MEDS: enoxaparin 30mg/0.3ml syringe SUBCUT SCH ×2 (07:33→20:02)
[2018-06-09] MEDS: pantoprazole 40 MG vial IV SCH (07:33)
[2018-06-09] MEDS: lactobacillus rhamnosus 10,000 MMU CELLS/CAPSULE PO SCH ×2 (07:34→20:01)
[2018-06-09] MEDS: metoprolol tartrate 25mg tablet PO SCH ×2 (07:34→20:01)
[2018-06-09] MEDS: atorvastatin 20mg tablet PO SCH (07:34)
[2018-06-09] MEDS: sennosides/docusate sodium tablet PO SCH ×2 (07:34→20:01)
[2018-06-09] MEDS: enoxaparin 40mg/0.4ml syringe SUBCUT SCH ×2 (07:34→20:02)
[2018-06-09] MEDS: fluconazole-Diflucan 200mg/NS 100 ML IV SCH (07:34)
[2018-06-09] MEDS: pregabalin 75mg capsule PO SCH (07:34)
[2018-06-09] MEDS: K and/or MAG REPLACEMENT MC SCH (07:51)
[2018-06-09] MEDS: isosorbide mononitrate 30mg tab.SR.24H PO SCH (07:51)
[2018-06-09] MEDS: ranolazine 500mg SR tablet (Q12H) PO SCH ×2 (08:00→20:00)
[2018-06-09] MEDS: insulin regular, human vial - multi-dose SQ SCH ×2 (08:13→20:14)
[2018-06-09] MEDS: CefTRIAXone/D5W-Rocephin 1gm 50 ML IV SCH (10:38)
[2018-06-09] MEDS: fentaNYL/PF 50MCG/1 ML 2ML syringe IV PRN ×3 (11:47→23:04)
[2018-06-09] MEDS: diltiazem 30mg tablet PO SCH ×2 (15:03→20:01)
[2018-06-09] MEDS ORDERED: esmolol/sodium cl bag 250 ML IV ONE (16:55)
[2018-06-09] MEDS: insulin glargine (Lantus) pen - multi-dose SQ SCH (20:15)
[2018-06-10] VITALS (24 sets, daily range): BP systolic 82–190; BP diastolic 59–112
[2018-06-10] MEDS: diltiazem 30mg tablet PO SCH ×4 (01:48→21:06)
[2018-06-10] MEDS: insulin regular, human vial - multi-dose SQ SCH ×3 (02:31→21:11)
[2018-06-10] MEDS: fentaNYL/PF 50MCG/1 ML 2ML syringe IV PRN ×2 (03:18→12:06)
[2018-06-10 03:25] LABS: BASOPHILS % (AUTO) 0.1 % (0-1); EOSINOPHILS # (AUTO) 0.2 X10'3 (0-0.9); EOSINOPHILS % (AUTO) 0.9 % (0-6); HEMATOCRIT 29.8 % (35.0-45.0); HEMOGLOBIN 10.1 g/dl (12.0-16.0); LYMPHOCYTES # (AUTO) 1.4 X10'3 (1.1-4.8); MEAN CORPUSCULAR HEMOGLOBIN 33.3 PG (27.0-31.0); MEAN CORPUSCULAR HGB CONC 33.8 % (33.0-36.5); MEAN CORPUSCULAR VOLUME 98.6 FL (78-98); MEAN PLATELET VOLUME 9.8 FL (7.4-10.4); MONOCYTES # (AUTO) 1.8 X10'3 (0-0.9); MONOCYTES % (AUTO) 10.8 % (2-12); NEUTROPHILS # (AUTO) 13.5 X10'3 (1.8-7.7); NEUTROPHILS % (AUTO) 80.2 % (42-75); PLATELET COUNT 267 X10'3 (140-440); RED BLOOD COUNT 3.02 X10'6 (4.20-5.60); RED CELL DISTRIBUTION WIDTH 13.5 % (11.5-14.5); WHITE BLOOD COUNT 16.9 X10'3 (4.5-11.0)
[2018-06-10] MEDS: ipratropium/albuterol 3ml nebule NEB SCH ×4 (03:28→20:28)
[2018-06-10 03:41] LABS: ALANINE AMINOTRANSFERASE 53 U/L (12-78); ALBUMIN 1.8 G/DL (3.4-5.0); ALBUMIN/GLOBULIN RATIO 0.5 (1.1-1.5); ALKALINE PHOSPHATASE 233 IU/L (46-116); ANION GAP 10 (8-16); ASPARTATE AMINO TRANSFERASE 50 U/L (10-37); BILIRUBIN,TOTAL 0.4 MG/DL (0.1-1.0); BLOOD UREA NITROGEN 19 MG/DL (7-18); BUN/CREATININE RATIO 40.4 (6.6-38.0); CALCIUM 8.3 MG/DL (8.5-10.1); CHLORIDE 104 MMOL/L (99-107); CREATININE 0.47 MG/DL (0.40-0.90); GLUCOSE 186 MG/DL (70-104); MAGNESIUM 1.6 MG/DL (1.5-2.4); PHOSPHORUS 2.7 MG/DL (2.3-4.5); POTASSIUM 3.1 MMOL/L (3.5-5.1); SODIUM 138 MMOL/L (135-145); TOTAL CARBON DIOXIDE 24.4 MMOL/L (24-32); TOTAL PROTEIN 5.3 G/DL (6.4-8.2); eGFR > 90 ML/MIN
[2018-06-10] MEDS ORDERED: labetalol 20mg/4ml (5mg/ml) syringe IV ONE (03:45)
[2018-06-10 04:40] LABS: TOTAL CELLS COUNTED 100
[2018-06-10 04:41] LABS: PLATELET ESTIMATE NORMAL; POLYCHROMASIA FEW
[2018-06-10 04:42] LABS: TOXIC GRANULATION 2+
[2018-06-10] MEDS: enoxaparin 30mg/0.3ml syringe SUBCUT SCH ×2 (07:51→21:07)
[2018-06-10] MEDS: enoxaparin 40mg/0.4ml syringe SUBCUT SCH ×2 (07:54→21:07)
[2018-06-10] MEDS: lactobacillus rhamnosus 10,000 MMU CELLS/CAPSULE PO SCH ×2 (07:56→21:06)
[2018-06-10] MEDS: atorvastatin 20mg tablet PO SCH (07:56)
[2018-06-10] MEDS: metoprolol tartrate 25mg tablet PO SCH ×2 (07:56→21:06)
[2018-06-10] MEDS: pantoprazole 40 MG vial IV SCH (07:57)
[2018-06-10] MEDS: K and/or MAG REPLACEMENT MC SCH (08:00)
[2018-06-10] MEDS: ranolazine 500mg SR tablet (Q12H) PO SCH ×2 (08:00→20:00)
[2018-06-10] MEDS: isosorbide mononitrate 30mg tab.SR.24H PO SCH (08:00)
[2018-06-10] MEDS: fat emulsion IV 100 ML, MVI, adult No.4 with vit. K 5 ML, Trace element-5 inj. 0.5 ML i... IV SCH ×8 (08:16→21:06)
[2018-06-10] MEDS: dextrose 50%-water 50ml dispensing syringe IV PRN (08:41)
[2018-06-10] MEDS: CefTRIAXone/D5W-Rocephin 1gm 50 ML IV SCH (08:48)
[2018-06-10] MEDS: fluconazole-Diflucan 200mg/NS 100 ML IV SCH (09:42)
[2018-06-10] MEDS: sennosides/docusate sodium tablet PO SCH ×2 (09:42→21:06)
[2018-06-10] MEDS: pregabalin 75mg capsule PO SCH (09:42)
[2018-06-10] MEDS: potassium Cl 40MEQ/250ML bag 250 ML IV PRN (10:49)
[2018-06-10] MEDS: normal saline 1000ml 1,000 ML IV SCH (11:00)
[2018-06-10] MEDS: insulin glargine (Lantus) pen - multi-dose SQ SCH (21:09)
[2018-06-11] VITALS (22 sets, daily range): BP systolic 120–166; BP diastolic 63–109
[2018-06-11] MEDS: diltiazem 30mg tablet PO SCH ×4 (02:02→19:57)
[2018-06-11] MEDS: insulin regular, human vial - multi-dose SQ SCH ×4 (02:04→20:13)
[2018-06-11] MEDS: ipratropium/albuterol 3ml nebule NEB SCH ×3 (02:12→20:42)
[2018-06-11 05:49] LABS: BASOPHILS % (AUTO) 0 % (0-1); EOSINOPHILS # (AUTO) 0.2 X10'3 (0-0.9); HEMATOCRIT 30.1 % (35.0-45.0); HEMOGLOBIN 10.7 g/dl (12.0-16.0); LYMPHOCYTES # (AUTO) 1.4 X10'3 (1.1-4.8); LYMPHOCYTES % (AUTO) 7.4 % (21-51); MEAN CORPUSCULAR HEMOGLOBIN 34.8 PG (27.0-31.0); MEAN CORPUSCULAR HGB CONC 35.6 % (33.0-36.5); MEAN CORPUSCULAR VOLUME 97.6 FL (78-98); MEAN PLATELET VOLUME 9.9 FL (7.4-10.4); MONOCYTES % (AUTO) 10.9 % (2-12); NEUTROPHILS # (AUTO) 14.8 X10'3 (1.8-7.7); NEUTROPHILS % (AUTO) 80.7 % (42-75); PLATELET COUNT 334 X10'3 (140-440); RED BLOOD COUNT 3.08 X10'6 (4.20-5.60); RED CELL DISTRIBUTION WIDTH 13.5 % (11.5-14.5); WHITE BLOOD COUNT 18.4 X10'3 (4.5-11.0)
[2018-06-11 06:20] LABS: ALANINE AMINOTRANSFERASE 38 U/L (12-78); ALBUMIN 1.8 G/DL (3.4-5.0); ALBUMIN/GLOBULIN RATIO 0.5 (1.1-1.5); ALKALINE PHOSPHATASE 185 IU/L (46-116); ANION GAP 10 (8-16); ASPARTATE AMINO TRANSFERASE 24 U/L (10-37); BILIRUBIN,TOTAL 0.4 MG/DL (0.1-1.0); BLOOD UREA NITROGEN 16 MG/DL (7-18); BUN/CREATININE RATIO 36.4 (6.6-38.0); CALCIUM 8.3 MG/DL (8.5-10.1); CHLORIDE 99 MMOL/L (99-107); CREATININE 0.44 MG/DL (0.40-0.90); GLUCOSE 82 MG/DL (70-104); MAGNESIUM 1.5 MG/DL (1.5-2.4); SODIUM 135 MMOL/L (135-145); TOTAL CARBON DIOXIDE 26.2 MMOL/L (24-32); TOTAL PROTEIN 5.6 G/DL (6.4-8.2); eGFR > 90 ML/MIN
[2018-06-11 06:52] LABS: POTASSIUM 2.7 MMOL/L (3.5-5.1)
[2018-06-11] MEDS: potassium Cl 40MEQ/250ML bag 250 ML IV PRN ×2 (07:39→11:04)
[2018-06-11] MEDS: K and/or MAG REPLACEMENT MC SCH (07:40)
[2018-06-11] MEDS: isosorbide mononitrate 30mg tab.SR.24H PO SCH (07:40)
[2018-06-11] MEDS: pantoprazole 40 MG vial IV SCH (07:41)
[2018-06-11] MEDS: sennosides/docusate sodium tablet PO SCH ×2 (07:42→19:55)
[2018-06-11] MEDS: atorvastatin 20mg tablet PO SCH (07:42)
[2018-06-11] MEDS: ranolazine 500mg SR tablet (Q12H) PO SCH ×2 (07:42→19:55)
[2018-06-11] MEDS: metoprolol tartrate 25mg tablet PO SCH ×2 (07:42→19:55)
[2018-06-11] MEDS: lactobacillus rhamnosus 10,000 MMU CELLS/CAPSULE PO SCH ×2 (07:43→19:55)
[2018-06-11] MEDS: enoxaparin 40mg/0.4ml syringe SUBCUT SCH ×2 (07:43→19:56)
[2018-06-11] MEDS: pregabalin 75mg capsule PO SCH (07:43)
[2018-06-11] MEDS: enoxaparin 30mg/0.3ml syringe SUBCUT SCH ×2 (07:44→19:56)
[2018-06-11] MEDS: fluconazole-Diflucan 200mg/NS 100 ML IV SCH (08:11)
[2018-06-11] MEDS: CefTRIAXone/D5W-Rocephin 1gm 50 ML IV SCH (09:32)
[2018-06-11] MEDS: fat emulsion IV 100 ML, MVI, adult No.4 with vit. K 5 ML, Trace element-5 inj. 0.5 ML i... IV SCH ×8 (09:32→21:24)
[2018-06-11] MEDS ORDERED: amiodarone 150mg/dext, iso-os 100 ML IV ONE (13:10)
[2018-06-11] MEDS: amiodarone/D5 360MG/200ML BAG 200 ML IV SCH ×2 (14:13→19:48)
[2018-06-11] MEDS: acetaminophen 325mg tablet PO PRN (18:04)
[2018-06-11] MEDS: insulin glargine (Lantus) pen - multi-dose SQ SCH (20:14)
[2018-06-12] VITALS (24 sets, daily range): BP systolic 97–160; BP diastolic 50–89
[2018-06-12] MEDS: amiodarone/D5 360MG/200ML BAG 200 ML IV SCH ×4 (01:18→19:41)
[2018-06-12] MEDS: insulin regular, human vial - multi-dose SQ SCH ×4 (02:18→20:13)
[2018-06-12] MEDS: diltiazem 30mg tablet PO SCH ×4 (02:19→19:53)
[2018-06-12 02:21] LABS: BASOPHILS # (AUTO) 0.2 X10'3 (0-0.2); EOSINOPHILS # (AUTO) 0.1 X10'3 (0-0.9); EOSINOPHILS % (AUTO) 0.5 % (0-6); HEMOGLOBIN 9.7 g/dl (12.0-16.0); LYMPHOCYTES # (AUTO) 1.3 X10'3 (1.1-4.8); LYMPHOCYTES % (AUTO) 7.6 % (21-51); MEAN CORPUSCULAR HEMOGLOBIN 33.6 PG (27.0-31.0); MEAN CORPUSCULAR HGB CONC 34.7 % (33.0-36.5); MEAN CORPUSCULAR VOLUME 96.9 FL (78-98); MEAN PLATELET VOLUME 9.4 FL (7.4-10.4); MONOCYTES # (AUTO) 1.8 X10'3 (0-0.9); NEUTROPHILS # (AUTO) 13.1 X10'3 (1.8-7.7); NEUTROPHILS % (AUTO) 79.9 % (42-75); PLATELET COUNT 338 X10'3 (140-440); RED BLOOD COUNT 2.89 X10'6 (4.20-5.60); RED CELL DISTRIBUTION WIDTH 13.6 % (11.5-14.5); WHITE BLOOD COUNT 16.5 X10'3 (4.5-11.0)
[2018-06-12 02:33] LABS: ALANINE AMINOTRANSFERASE 30 U/L (12-78); ALBUMIN 1.6 G/DL (3.4-5.0); ALBUMIN/GLOBULIN RATIO 0.4 (1.1-1.5); ALKALINE PHOSPHATASE 143 IU/L (46-116); ANION GAP 10 (8-16); ASPARTATE AMINO TRANSFERASE 20 U/L (10-37); BILIRUBIN,TOTAL 0.2 MG/DL (0.1-1.0); BLOOD UREA NITROGEN 19 MG/DL (7-18); BUN/CREATININE RATIO 42.2 (6.6-38.0); CALCIUM 8.1 MG/DL (8.5-10.1); CHLORIDE 97 MMOL/L (99-107); CREATININE 0.45 MG/DL (0.40-0.90); GLUCOSE 155 MG/DL (70-104); MAGNESIUM 1.5 MG/DL (1.5-2.4); PHOSPHORUS 3.1 MG/DL (2.3-4.5); PREALBUMIN 14.7 MG/DL (19-36); SODIUM 130 MMOL/L (135-145); TOTAL CARBON DIOXIDE 23.1 MMOL/L (24-32); TOTAL PROTEIN 5.2 G/DL (6.4-8.2); TRIGLYCERIDES 72 MG/DL (20-135); eGFR > 90 ML/MIN
[2018-06-12] MEDS: ipratropium/albuterol 3ml nebule NEB SCH ×4 (02:43→21:12)
[2018-06-12 02:45] LABS: POTASSIUM 3.2 MMOL/L (3.5-5.1)
[2018-06-12 02:53] LABS: TOTAL CELLS COUNTED 100
[2018-06-12 02:54] LABS: LARGE PLATELETS FEW; PLATELET ESTIMATE NORMAL; POLYCHROMASIA 1+; TOXIC GRANULATION 1+
[2018-06-12] MEDS: potassium Cl 40MEQ/250ML bag 250 ML IV PRN (03:37)
[2018-06-12] MEDS: K and/or MAG REPLACEMENT MC SCH (08:00)
[2018-06-12] MEDS: enoxaparin 30mg/0.3ml syringe SUBCUT SCH ×2 (08:43→19:53)
[2018-06-12] MEDS: enoxaparin 40mg/0.4ml syringe SUBCUT SCH ×2 (08:43→19:52)
[2018-06-12] MEDS: pantoprazole 40 MG vial IV SCH (08:43)
[2018-06-12] MEDS: CefTRIAXone/D5W-Rocephin 1gm 50 ML IV SCH (08:44)
[2018-06-12] MEDS: lactobacillus rhamnosus 10,000 MMU CELLS/CAPSULE PO SCH ×2 (08:44→19:53)
[2018-06-12] MEDS: sennosides/docusate sodium tablet PO SCH ×2 (08:44→19:53)
[2018-06-12] MEDS: pregabalin 75mg capsule PO SCH (08:44)
[2018-06-12] MEDS: isosorbide mononitrate 30mg tab.SR.24H PO SCH (08:44)
[2018-06-12] MEDS: atorvastatin 20mg tablet PO SCH (08:45)
[2018-06-12] MEDS: metoprolol tartrate 25mg tablet PO SCH ×2 (08:45→19:53)
[2018-06-12] MEDS: ranolazine 500mg SR tablet (Q12H) PO SCH ×2 (08:45→20:00)
[2018-06-12] MEDS: fat emulsion IV 100 ML, MVI, adult No.4 with vit. K 5 ML, Trace element-5 inj. 0.5 ML i... IV SCH ×8 (11:20→23:30)
[2018-06-12] MEDS: normal saline 1000ml 1,000 ML IV SCH (11:21)
[2018-06-12] MEDS: insulin glargine (Lantus) pen - multi-dose SQ SCH (20:14)
[2018-06-12] MEDS: ondansetron/PF 4mg/2ml inj IV PRN (21:13)
[2018-06-13] VITALS (26 sets, daily range): BP systolic 88–123; BP diastolic 40–73
[2018-06-13] MEDS: diltiazem 30mg tablet PO SCH ×4 (02:43→20:16)
[2018-06-13] MEDS: insulin regular, human vial - multi-dose SQ SCH ×3 (02:48→20:45)
[2018-06-13] MEDS: ipratropium/albuterol 3ml nebule NEB SCH ×4 (03:00→20:41)
[2018-06-13 03:20] LABS: BASOPHILS % (AUTO) 0.2 % (0-1); EOSINOPHILS # (AUTO) 0.2 X10'3 (0-0.9); EOSINOPHILS % (AUTO) 1.1 % (0-6); HEMATOCRIT 25.9 % (35.0-45.0); HEMOGLOBIN 8.7 g/dl (12.0-16.0); LYMPHOCYTES # (AUTO) 0.8 X10'3 (1.1-4.8); LYMPHOCYTES % (AUTO) 5.1 % (21-51); MEAN CORPUSCULAR HEMOGLOBIN 32.4 PG (27.0-31.0); MEAN CORPUSCULAR HGB CONC 33.6 % (33.0-36.5); MEAN CORPUSCULAR VOLUME 96.6 FL (78-98); MONOCYTES # (AUTO) 1.4 X10'3 (0-0.9); MONOCYTES % (AUTO) 9.3 % (2-12); NEUTROPHILS # (AUTO) 12.5 X10'3 (1.8-7.7); NEUTROPHILS % (AUTO) 84.3 % (42-75); PLATELET COUNT 346 X10'3 (140-440); RED BLOOD COUNT 2.68 X10'6 (4.20-5.60); RED CELL DISTRIBUTION WIDTH 13.7 % (11.5-14.5); WHITE BLOOD COUNT 14.9 X10'3 (4.5-11.0)
[2018-06-13 03:35] LABS: ALANINE AMINOTRANSFERASE 23 U/L (12-78); ALBUMIN 1.5 G/DL (3.4-5.0); ALBUMIN/GLOBULIN RATIO 0.4 (1.1-1.5); ALKALINE PHOSPHATASE 116 IU/L (46-116); ANION GAP 7 (8-16); ASPARTATE AMINO TRANSFERASE 13 U/L (10-37); BILIRUBIN,TOTAL 0.2 MG/DL (0.1-1.0); BLOOD UREA NITROGEN 24 MG/DL (7-18); BUN/CREATININE RATIO 54.5 (6.6-38.0); CALCIUM 7.7 MG/DL (8.5-10.1); CHLORIDE 97 MMOL/L (99-107); CREATININE 0.44 MG/DL (0.40-0.90); GLUCOSE 108 MG/DL (70-104); MAGNESIUM 1.6 MG/DL (1.5-2.4); POTASSIUM 3.5 MMOL/L (3.5-5.1); PROTHROMBIN TIME 10.1 SECONDS (9.0-12.0); SODIUM 130 MMOL/L (135-145); TOTAL PROTEIN 4.9 G/DL (6.4-8.2); TRIGLYCERIDES 55 MG/DL (20-135); eGFR > 90 ML/MIN
[2018-06-13 03:49] LABS: PLATELET ESTIMATE NORMAL; TOTAL CELLS COUNTED 100; TOXIC GRANULATION 1+
[2018-06-13 03:50] LABS: LARGE PLATELETS FEW; POLYCHROMASIA 1+
[2018-06-13] MEDS: amiodarone/D5 360MG/200ML BAG 200 ML IV SCH ×2 (07:10→20:17)
[2018-06-13] MEDS: CefTRIAXone/D5W-Rocephin 1gm 50 ML IV SCH (07:11)
[2018-06-13] MEDS: atorvastatin 20mg tablet PO SCH (07:15)
[2018-06-13] MEDS: lactobacillus rhamnosus 10,000 MMU CELLS/CAPSULE PO SCH ×2 (07:16→20:16)
[2018-06-13] MEDS: sennosides/docusate sodium tablet PO SCH ×2 (07:16→20:16)
[2018-06-13] MEDS: isosorbide mononitrate 30mg tab.SR.24H PO SCH (07:17)
[2018-06-13] MEDS: ranolazine 500mg SR tablet (Q12H) PO SCH ×2 (07:17→20:16)
[2018-06-13] MEDS: pregabalin 75mg capsule PO SCH (07:18)
[2018-06-13] MEDS: metoprolol tartrate 25mg tablet PO SCH ×2 (07:18→20:16)
[2018-06-13] MEDS: enoxaparin 30mg/0.3ml syringe SUBCUT SCH ×2 (07:34→20:15)
[2018-06-13] MEDS: enoxaparin 40mg/0.4ml syringe SUBCUT SCH ×2 (07:35→20:16)
[2018-06-13] MEDS: pantoprazole 40 MG vial IV SCH (07:39)
[2018-06-13] MEDS: K and/or MAG REPLACEMENT MC SCH (08:00)
[2018-06-13] MEDS: potassium Cl 40MEQ/250ML bag 250 ML IV PRN (11:17)
[2018-06-13] MEDS ORDERED: etomidate 2mg/ml inj. IV ONE (12:15)
[2018-06-13] MEDS: fat emulsion IV 100 ML, MVI, adult No.4 with vit. K 5 ML, Trace element-5 inj. 0.5 ML i... IV SCH ×4 (12:38)
[2018-06-13] MEDS: acetaminophen 325mg tablet PO PRN (18:10)
[2018-06-13] MEDS: insulin glargine (Lantus) pen - multi-dose SQ SCH (20:43)
[2018-06-14] VITALS (22 sets, daily range): BP systolic 111–145; BP diastolic 49–64
[2018-06-14] MEDS: fat emulsion IV 100 ML, MVI, adult No.4 with vit. K 5 ML, Trace element-5 inj. 0.5 ML i... IV SCH ×8 (00:02→11:01)
[2018-06-14] MEDS: diltiazem 30mg tablet PO SCH ×4 (02:17→20:35)
[2018-06-14] MEDS: insulin regular, human vial - multi-dose SQ SCH ×4 (02:24→20:28)
[2018-06-14 02:49] LABS: BASOPHILS # (AUTO) 0.1 X10'3 (0-0.2); BASOPHILS % (AUTO) 0.5 % (0-1); EOSINOPHILS # (AUTO) 0.1 X10'3 (0-0.9); EOSINOPHILS % (AUTO) 1.2 % (0-6); HEMATOCRIT 25.6 % (35.0-45.0); HEMOGLOBIN 8.9 g/dl (12.0-16.0); LYMPHOCYTES # (AUTO) 0.7 X10'3 (1.1-4.8); LYMPHOCYTES % (AUTO) 5.5 % (21-51); MEAN CORPUSCULAR HEMOGLOBIN 33.8 PG (27.0-31.0); MEAN CORPUSCULAR HGB CONC 34.6 % (33.0-36.5); MEAN CORPUSCULAR VOLUME 97.8 FL (78-98); MEAN PLATELET VOLUME 9.8 FL (7.4-10.4); MONOCYTES % (AUTO) 8.3 % (2-12); NEUTROPHILS # (AUTO) 10.5 X10'3 (1.8-7.7); NEUTROPHILS % (AUTO) 84.5 % (42-75); PLATELET COUNT 363 X10'3 (140-440); RED BLOOD COUNT 2.62 X10'6 (4.20-5.60); RED CELL DISTRIBUTION WIDTH 13.8 % (11.5-14.5); WHITE BLOOD COUNT 12.4 X10'3 (4.5-11.0)
[2018-06-14] MEDS: acetaminophen 325mg tablet PO PRN ×3 (02:49→20:44)
[2018-06-14 02:50] LABS: ALANINE AMINOTRANSFERASE 19 U/L (12-78); ALBUMIN 1.5 G/DL (3.4-5.0); ALBUMIN/GLOBULIN RATIO 0.4 (1.1-1.5); ALKALINE PHOSPHATASE 99 IU/L (46-116); ANION GAP 7 (8-16); ASPARTATE AMINO TRANSFERASE 15 U/L (10-37); BILIRUBIN,TOTAL 0.2 MG/DL (0.1-1.0); BLOOD UREA NITROGEN 24 MG/DL (7-18); BUN/CREATININE RATIO 43.6 (6.6-38.0); CHLORIDE 101 MMOL/L (99-107); CREATININE 0.55 MG/DL (0.40-0.90); GLUCOSE 115 MG/DL (70-104); MAGNESIUM 1.6 MG/DL (1.5-2.4); PHOSPHORUS 3.8 MG/DL (2.3-4.5); POTASSIUM 3.9 MMOL/L (3.5-5.1); SODIUM 133 MMOL/L (135-145); TOTAL CARBON DIOXIDE 24.6 MMOL/L (24-32); TOTAL PROTEIN 4.9 G/DL (6.4-8.2); eGFR > 90 ML/MIN
[2018-06-14] MEDS: ipratropium/albuterol 3ml nebule NEB SCH ×4 (02:56→20:18)
[2018-06-14] MEDS: potassium Cl 40MEQ/250ML bag 250 ML IV PRN (04:59)
[2018-06-14] MEDS: ondansetron/PF 4mg/2ml inj IV PRN ×2 (05:52→15:23)
[2018-06-14] MEDS: amiodarone/D5 360MG/200ML BAG 200 ML IV SCH ×2 (06:51→19:36)
[2018-06-14] MEDS: sennosides/docusate sodium tablet PO SCH ×2 (07:54→20:35)
[2018-06-14] MEDS: CefTRIAXone/D5W-Rocephin 1gm 50 ML IV SCH (07:54)
[2018-06-14] MEDS: pregabalin 75mg capsule PO SCH (07:54)
[2018-06-14] MEDS: lactobacillus rhamnosus 10,000 MMU CELLS/CAPSULE PO SCH ×2 (07:55→20:35)
[2018-06-14] MEDS: isosorbide mononitrate 30mg tab.SR.24H PO SCH (07:55)
[2018-06-14] MEDS: enoxaparin 30mg/0.3ml syringe SUBCUT SCH ×2 (07:55→20:36)
[2018-06-14] MEDS: pantoprazole 40 MG vial IV SCH (07:55)
[2018-06-14] MEDS: metoprolol tartrate 25mg tablet PO SCH ×2 (07:55→20:35)
[2018-06-14] MEDS: ranolazine 500mg SR tablet (Q12H) PO SCH ×2 (07:55→20:35)
[2018-06-14] MEDS: atorvastatin 20mg tablet PO SCH (07:56)
[2018-06-14] MEDS: enoxaparin 40mg/0.4ml syringe SUBCUT SCH ×2 (07:56→20:36)
[2018-06-14] MEDS: K and/or MAG REPLACEMENT MC SCH (08:00)
[2018-06-14] MEDS: normal saline 1000ml 1,000 ML IV SCH (11:07)
[2018-06-14] MEDS: insulin glargine (Lantus) pen - multi-dose SQ SCH (20:29)
[2018-06-15] VITALS (24 sets, daily range): BP systolic 103–178; BP diastolic 50–91
[2018-06-15] MEDS: fat emulsion IV 100 ML, MVI, adult No.4 with vit. K 5 ML, Trace element-5 inj. 0.5 ML i... IV SCH ×12 (02:16→23:40)
[2018-06-15] MEDS: diltiazem 30mg tablet PO SCH ×5 (02:16→20:24)
[2018-06-15] MEDS: ipratropium/albuterol 3ml nebule NEB SCH ×4 (02:21→20:24)
[2018-06-15] MEDS: insulin regular, human vial - multi-dose SQ SCH ×3 (02:27→21:35)
[2018-06-15 02:39] LABS: BASOPHILS % (AUTO) 0.2 % (0-1); EOSINOPHILS # (AUTO) 0.3 X10'3 (0-0.9); EOSINOPHILS % (AUTO) 2.9 % (0-6); HEMATOCRIT 26.2 % (35.0-45.0); HEMOGLOBIN 8.6 g/dl (12.0-16.0); LYMPHOCYTES # (AUTO) 0.4 X10'3 (1.1-4.8); MEAN CORPUSCULAR HEMOGLOBIN 32.3 PG (27.0-31.0); MEAN CORPUSCULAR HGB CONC 32.8 % (33.0-36.5); MEAN CORPUSCULAR VOLUME 98.4 FL (78-98); MEAN PLATELET VOLUME 9.2 FL (7.4-10.4); MONOCYTES # (AUTO) 1.1 X10'3 (0-0.9); MONOCYTES % (AUTO) 10.2 % (2-12); NEUTROPHILS # (AUTO) 9.2 X10'3 (1.8-7.7); NEUTROPHILS % (AUTO) 82.7 % (42-75); PLATELET COUNT 402 X10'3 (140-440); RED BLOOD COUNT 2.66 X10'6 (4.20-5.60); RED CELL DISTRIBUTION WIDTH 15.3 % (11.5-14.5); WHITE BLOOD COUNT 11.1 X10'3 (4.5-11.0)
[2018-06-15 03:03] LABS: ALANINE AMINOTRANSFERASE 19 U/L (12-78); ALBUMIN 1.6 G/DL (3.4-5.0); ALBUMIN/GLOBULIN RATIO 0.5 (1.1-1.5); ALKALINE PHOSPHATASE 98 IU/L (46-116); ANION GAP 8 (8-16); ASPARTATE AMINO TRANSFERASE 13 U/L (10-37); BILIRUBIN,TOTAL 0.2 MG/DL (0.1-1.0); BLOOD UREA NITROGEN 22 MG/DL (7-18); BUN/CREATININE RATIO 41.5 (6.6-38.0); CHLORIDE 102 MMOL/L (99-107); CREATININE 0.53 MG/DL (0.40-0.90); GLUCOSE 95 MG/DL (70-104); MAGNESIUM 1.7 MG/DL (1.5-2.4); PHOSPHORUS 3.7 MG/DL (2.3-4.5); POTASSIUM 3.8 MMOL/L (3.5-5.1); SODIUM 135 MMOL/L (135-145); TOTAL CARBON DIOXIDE 25.3 MMOL/L (24-32); eGFR > 90 ML/MIN
[2018-06-15] MEDS: amiodarone/D5 360MG/200ML BAG 200 ML IV SCH (05:56)
[2018-06-15] MEDS: ondansetron/PF 4mg/2ml inj IV PRN (06:59)
[2018-06-15] MEDS: CefTRIAXone/D5W-Rocephin 1gm 50 ML IV SCH (07:46)
[2018-06-15] MEDS: sennosides/docusate sodium tablet PO SCH ×3 (07:46→20:00)
[2018-06-15] MEDS: isosorbide mononitrate 30mg tab.SR.24H PO SCH (07:47)
[2018-06-15] MEDS: ranolazine 500mg SR tablet (Q12H) PO SCH ×3 (07:47→20:00)
[2018-06-15] MEDS: metoprolol tartrate 25mg tablet PO SCH ×3 (07:47→20:23)
[2018-06-15] MEDS: enoxaparin 40mg/0.4ml syringe SUBCUT SCH ×2 (07:47→21:31)
[2018-06-15] MEDS: enoxaparin 30mg/0.3ml syringe SUBCUT SCH ×2 (07:47→21:30)
[2018-06-15] MEDS: lactobacillus rhamnosus 10,000 MMU CELLS/CAPSULE PO SCH ×3 (07:48→20:24)
[2018-06-15] MEDS: atorvastatin 20mg tablet PO SCH (07:48)
[2018-06-15] MEDS: pregabalin 75mg capsule PO SCH (07:48)
[2018-06-15] MEDS: acetaminophen 325mg tablet PO PRN ×2 (07:48→21:51)
[2018-06-15] MEDS: pantoprazole 40 MG vial IV SCH (07:48)
[2018-06-15] MEDS: K and/or MAG REPLACEMENT MC SCH (08:00)
[2018-06-15] MEDS: HYDROmorphone inj. 0.5 MG/0.5 ML DISP.SYRIN IV PRN ×2 (10:43→14:45)
[2018-06-15] MEDS ORDERED: hydrALAZINE 20mg/ml inj. IV PRN (20:05)
[2018-06-15] MEDS: diatr meglu/diatrizoate 30ml oral sol.-(3 dose) bottle PO SCH (20:24)
[2018-06-15] MEDS ORDERED: furosemide 40mg/4ml inj IV ONE (21:05)
[2018-06-15] MEDS ORDERED: furosemide 40mg/4ml inj ONE (21:12)
[2018-06-15] MEDS: insulin glargine (Lantus) pen - multi-dose SQ SCH (21:38)
[2018-06-15 21:41] LABS: ABG BASE EXCESS -1.4 mmol/L (-2.0-3.0); ABG HCO3 21.7 mmol/L (22.0-26.0); ABG OXYGEN SATURATION 95.2 % (95-98); ABG PCO2 (T) 33.8 mmHg (32.0-45.0); ABG PH (T) 7.433 (7.350-7.450); ABG PO2 (T) 86.4 mmHg (83-108); ALLEN'S TEST Positive; FCOHb 0.1 % (0.5-1.5); FMetHb 0.3 % (0.3-1.12); FO2Hb 94.8 % (94-100); MINUTE VOLUME 12 L/min; PATIENT TEMPERATURE 38.9; RESPIRATORY RATE 12 b/min; RESPIRATORY RATE (OBSERVED) 38 b/min; TOTAL HEMOGLOBIN 11.1 G/dl (12.0-16.0)
[2018-06-16] VITALS (24 sets, daily range): BP systolic 94–126; BP diastolic 43–66
[2018-06-16 01:46] LABS: ABG BASE EXCESS -0.5 mmol/L (-2.0-3.0); ABG HCO3 22.3 mmol/L (22.0-26.0); ABG PCO2 (T) 32.3 mmHg (32.0-45.0); ABG PH (T) 7.462 (7.350-7.450); FMetHb 0.3 % (0.3-1.12); FO2Hb 94.7 % (94-100); PATIENT TEMPERATURE 38.3; RESPIRATORY RATE 12 b/min; RESPIRATORY RATE (OBSERVED) 32 b/min; TOTAL HEMOGLOBIN 10.6 G/dl (12.0-16.0)
[2018-06-16] MEDS: diltiazem 30mg tablet PO SCH ×4 (02:01→20:08)
[2018-06-16] MEDS: HYDROmorphone inj. 0.5 MG/0.5 ML DISP.SYRIN IV PRN (02:01)
[2018-06-16] MEDS: ipratropium/albuterol 3ml nebule NEB SCH ×4 (02:29→20:12)
[2018-06-16] MEDS: insulin regular, human vial - multi-dose SQ SCH ×4 (02:43→20:19)
[2018-06-16] MEDS: amiodarone/D5 360MG/200ML BAG 200 ML IV SCH ×3 (03:36→15:58)
[2018-06-16 04:51] LABS: BASOPHILS % (AUTO) 0.2 % (0-1); EOSINOPHILS # (AUTO) 0.2 X10'3 (0-0.9); EOSINOPHILS % (AUTO) 1.2 % (0-6); HEMATOCRIT 27.9 % (35.0-45.0); LYMPHOCYTES # (AUTO) 0.6 X10'3 (1.1-4.8); LYMPHOCYTES % (AUTO) 4.2 % (21-51); MEAN CORPUSCULAR HEMOGLOBIN 31.8 PG (27.0-31.0); MEAN CORPUSCULAR HGB CONC 32.3 % (33.0-36.5); MEAN CORPUSCULAR VOLUME 98.5 FL (78-98); MEAN PLATELET VOLUME 9.7 FL (7.4-10.4); MONOCYTES # (AUTO) 1.8 X10'3 (0-0.9); MONOCYTES % (AUTO) 13.1 % (2-12); NEUTROPHILS # (AUTO) 11.3 X10'3 (1.8-7.7); NEUTROPHILS % (AUTO) 81.3 % (42-75); PLATELET COUNT 409 X10'3 (140-440); RED BLOOD COUNT 2.83 X10'6 (4.20-5.60); RED CELL DISTRIBUTION WIDTH 15.3 % (11.5-14.5); WHITE BLOOD COUNT 13.9 X10'3 (4.5-11.0)
[2018-06-16 05:26] LABS: ALANINE AMINOTRANSFERASE 18 U/L (12-78); ALBUMIN 1.7 G/DL (3.4-5.0); ALBUMIN/GLOBULIN RATIO 0.5 (1.1-1.5); ALKALINE PHOSPHATASE 98 IU/L (46-116); ANION GAP 7 (8-16); ASPARTATE AMINO TRANSFERASE 10 U/L (10-37); BILIRUBIN,TOTAL 0.2 MG/DL (0.1-1.0); BLOOD UREA NITROGEN 24 MG/DL (7-18); BUN/CREATININE RATIO 34.3 (6.6-38.0); CALCIUM 8.1 MG/DL (8.5-10.1); CHLORIDE 99 MMOL/L (99-107); GLUCOSE 119 MG/DL (70-104); MAGNESIUM 1.5 MG/DL (1.5-2.4); PHOSPHORUS 2.9 MG/DL (2.3-4.5); POTASSIUM 3.9 MMOL/L (3.5-5.1); SODIUM 132 MMOL/L (135-145); TOTAL CARBON DIOXIDE 25.9 MMOL/L (24-32); TOTAL PROTEIN 5.4 G/DL (6.4-8.2); TRIGLYCERIDES 43 MG/DL (20-135); eGFR 81 ML/MIN
[2018-06-16] MEDS: pantoprazole 40 MG vial IV SCH (08:29)
[2018-06-16] MEDS: isosorbide mononitrate 30mg tab.SR.24H PO SCH (08:30)
[2018-06-16] MEDS: pregabalin 75mg capsule PO SCH (08:30)
[2018-06-16] MEDS: ranolazine 500mg SR tablet (Q12H) PO SCH ×2 (08:30→20:00)
[2018-06-16] MEDS: CefTRIAXone/D5W-Rocephin 1gm 50 ML IV SCH (08:30)
[2018-06-16] MEDS: metoprolol tartrate 25mg tablet PO SCH ×2 (08:30→20:09)
[2018-06-16] MEDS: atorvastatin 20mg tablet PO SCH (08:30)
[2018-06-16] MEDS: lactobacillus rhamnosus 10,000 MMU CELLS/CAPSULE PO SCH ×2 (08:30→20:08)
[2018-06-16] MEDS: sennosides/docusate sodium tablet PO SCH ×2 (08:30→20:09)
[2018-06-16] MEDS: enoxaparin 30mg/0.3ml syringe SUBCUT SCH ×2 (08:31→20:09)
[2018-06-16] MEDS: enoxaparin 40mg/0.4ml syringe SUBCUT SCH ×2 (08:32→20:10)
[2018-06-16] MEDS: diatr meglu/diatrizoate 30ml oral sol.-(3 dose) bottle PO SCH ×2 (08:36→13:09)
[2018-06-16] MEDS: K and/or MAG REPLACEMENT MC SCH (08:50)
[2018-06-16] MEDS ORDERED: diphenhydrAMINE 50 mg/ml inj IV ONE (09:10)
[2018-06-16] MEDS: furosemide 40mg/4ml inj IV SCH ×2 (11:32→20:08)
[2018-06-16] MEDS: potassium Cl 20 mEq SR tablet PO SCH ×2 (11:33→17:35)
[2018-06-16] MEDS: fat emulsion IV 100 ML, MVI, adult No.4 with vit. K 5 ML, Trace element-5 inj. 0.5 ML i... IV SCH ×4 (12:37)
[2018-06-16] MEDS ORDERED: iohexol 300mg/ml 100ml inj. ONE (13:04)
[2018-06-16] MEDS: insulin glargine (Lantus) pen - multi-dose SQ SCH (21:40)
[2018-06-17] VITALS (30 sets, daily range): BP systolic 85–149; BP diastolic 42–76
[2018-06-17] MEDS: fat emulsion IV 100 ML, MVI, adult No.4 with vit. K 5 ML, Trace element-5 inj. 0.5 ML i... IV SCH ×8 (00:16→12:33)
[2018-06-17] MEDS: diltiazem 30mg tablet PO SCH ×4 (02:13→20:56)
[2018-06-17] MEDS: insulin regular, human vial - multi-dose SQ SCH ×4 (02:25→21:13)
[2018-06-17] MEDS: ipratropium/albuterol 3ml nebule NEB SCH ×4 (02:44→20:13)
[2018-06-17 02:47] LABS: BASOPHILS # (AUTO) 0.1 X10'3 (0-0.2); BASOPHILS % (AUTO) 1.5 % (0-1); EOSINOPHILS # (AUTO) 0.1 X10'3 (0-0.9); EOSINOPHILS % (AUTO) 1.4 % (0-6); HEMOGLOBIN 8.5 g/dl (12.0-16.0); LYMPHOCYTES # (AUTO) 0.3 X10'3 (1.1-4.8); LYMPHOCYTES % (AUTO) 3.4 % (21-51); MEAN CORPUSCULAR HEMOGLOBIN 32.1 PG (27.0-31.0); MEAN CORPUSCULAR HGB CONC 32.6 % (33.0-36.5); MEAN CORPUSCULAR VOLUME 98.6 FL (78-98); MEAN PLATELET VOLUME 9.6 FL (7.4-10.4); MONOCYTES # (AUTO) 1.4 X10'3 (0-0.9); MONOCYTES % (AUTO) 14.8 % (2-12); NEUTROPHILS # (AUTO) 7.3 X10'3 (1.8-7.7); NEUTROPHILS % (AUTO) 78.9 % (42-75); PLATELET COUNT 366 X10'3 (140-440); RED BLOOD COUNT 2.64 X10'6 (4.20-5.60); WHITE BLOOD COUNT 9.2 X10'3 (4.5-11.0)
[2018-06-17 03:07] LABS: ALANINE AMINOTRANSFERASE 19 U/L (12-78); ALBUMIN 1.5 G/DL (3.4-5.0); ALBUMIN/GLOBULIN RATIO 0.4 (1.1-1.5); ALKALINE PHOSPHATASE 91 IU/L (46-116); ANION GAP 8 (8-16); ASPARTATE AMINO TRANSFERASE 17 U/L (10-37); BILIRUBIN,TOTAL 0.1 MG/DL (0.1-1.0); BLOOD UREA NITROGEN 27 MG/DL (7-18); BUN/CREATININE RATIO 49.1 (6.6-38.0); CALCIUM 7.9 MG/DL (8.5-10.1); CHLORIDE 98 MMOL/L (99-107); CREATININE 0.55 MG/DL (0.40-0.90); GLUCOSE 150 MG/DL (70-104); MAGNESIUM 1.7 MG/DL (1.5-2.4); PHOSPHORUS 3.9 MG/DL (2.3-4.5); POTASSIUM 3.7 MMOL/L (3.5-5.1); SODIUM 132 MMOL/L (135-145); TOTAL CARBON DIOXIDE 26.2 MMOL/L (24-32); eGFR > 90 ML/MIN
[2018-06-17 03:52] LABS: GIANT PLATELET FEW; LARGE PLATELETS FEW
[2018-06-17 03:57] LABS: PLATELET ESTIMATE NORMAL
[2018-06-17] MEDS: amiodarone/D5 360MG/200ML BAG 200 ML IV SCH ×3 (04:09→16:15)
[2018-06-17] MEDS: ranolazine 500mg SR tablet (Q12H) PO SCH ×2 (07:12→20:55)
[2018-06-17] MEDS: isosorbide mononitrate 30mg tab.SR.24H PO SCH (07:12)
[2018-06-17] MEDS ORDERED: potassium Cl oral solution 20 MEQ/15 ML PO SCH ×2 (07:16→16:57)
[2018-06-17] MEDS: enoxaparin 40mg/0.4ml syringe SUBCUT SCH ×2 (08:00→20:55)
[2018-06-17] MEDS: enoxaparin 30mg/0.3ml syringe SUBCUT SCH ×2 (08:00→20:55)
[2018-06-17] MEDS: K and/or MAG REPLACEMENT MC SCH (08:00)
[2018-06-17] MEDS: furosemide 40mg/4ml inj IV SCH ×2 (08:15→20:56)
[2018-06-17] MEDS: atorvastatin 20mg tablet PO SCH (08:15)
[2018-06-17] MEDS: sennosides/docusate sodium tablet PO SCH ×2 (08:15→20:54)
[2018-06-17] MEDS: pantoprazole 40 MG vial IV SCH (08:15)
[2018-06-17] MEDS: CefTRIAXone/D5W-Rocephin 1gm 50 ML IV SCH (08:16)
[2018-06-17] MEDS: lactobacillus rhamnosus 10,000 MMU CELLS/CAPSULE PO SCH ×2 (08:16→20:54)
[2018-06-17] MEDS: pregabalin 75mg capsule PO SCH (08:16)
[2018-06-17] MEDS: metoprolol tartrate 25mg tablet PO SCH ×2 (08:16→20:54)
[2018-06-17] MEDS: HYDROmorphone inj. 0.5 MG/0.5 ML DISP.SYRIN IV PRN ×2 (12:33→20:43)
[2018-06-17] MEDS ORDERED: fentaNYL/PF 50MCG/1 ML 2ML syringe ONE (13:57)
[2018-06-17] MEDS: ondansetron/PF 4mg/2ml inj IV PRN (17:15)
[2018-06-17] MEDS: potassium Cl oral solution 20 MEQ/15 ML PO SCH (20:53)
[2018-06-17] MEDS: acetaminophen 325mg tablet PO PRN (20:54)
[2018-06-17] MEDS: insulin glargine (Lantus) pen - multi-dose SQ SCH (21:15)
[2018-06-18] VITALS (24 sets, daily range): BP systolic 80–148; BP diastolic 40–68
[2018-06-18] MEDS: fat emulsion IV 100 ML, MVI, adult No.4 with vit. K 5 ML, Trace element-5 inj. 0.5 ML i... IV SCH ×8 (01:38→14:04)
[2018-06-18] MEDS: HYDROmorphone inj. 0.5 MG/0.5 ML DISP.SYRIN IV PRN ×4 (01:38→23:09)
[2018-06-18] MEDS: amiodarone/D5 360MG/200ML BAG 200 ML IV SCH ×2 (02:35→14:05)
[2018-06-18] MEDS: diltiazem 30mg tablet PO SCH ×4 (02:35→21:10)
[2018-06-18] MEDS: insulin regular, human vial - multi-dose SQ SCH ×4 (02:38→21:17)
[2018-06-18] MEDS: ipratropium/albuterol 3ml nebule NEB SCH ×4 (03:05→20:22)
[2018-06-18 05:51] LABS: BASOPHILS % (AUTO) 0.1 % (0-1); EOSINOPHILS # (AUTO) 0.1 X10'3 (0-0.9); EOSINOPHILS % (AUTO) 1.7 % (0-6); HEMATOCRIT 27.9 % (35.0-45.0); HEMOGLOBIN 9.2 g/dl (12.0-16.0); LYMPHOCYTES # (AUTO) 0.6 X10'3 (1.1-4.8); MEAN CORPUSCULAR HEMOGLOBIN 32.2 PG (27.0-31.0); MEAN CORPUSCULAR VOLUME 97.6 FL (78-98); MEAN PLATELET VOLUME 8.9 FL (7.4-10.4); MONOCYTES % (AUTO) 12.5 % (2-12); NEUTROPHILS # (AUTO) 6.3 X10'3 (1.8-7.7); NEUTROPHILS % (AUTO) 78.7 % (42-75); PLATELET COUNT 369 X10'3 (140-440); RED BLOOD COUNT 2.86 X10'6 (4.20-5.60); RED CELL DISTRIBUTION WIDTH 14.9 % (11.5-14.5)
[2018-06-18 06:20] LABS: ALANINE AMINOTRANSFERASE 26 U/L (12-78); ALBUMIN 1.6 G/DL (3.4-5.0); ALBUMIN/GLOBULIN RATIO 0.4 (1.1-1.5); ALKALINE PHOSPHATASE 91 IU/L (46-116); ANION GAP 8 (8-16); ASPARTATE AMINO TRANSFERASE 22 U/L (10-37); BILIRUBIN,TOTAL 0.1 MG/DL (0.1-1.0); BLOOD UREA NITROGEN 26 MG/DL (7-18); BUN/CREATININE RATIO 47.3 (6.6-38.0); CALCIUM 7.9 MG/DL (8.5-10.1); CHLORIDE 98 MMOL/L (99-107); CREATININE 0.55 MG/DL (0.40-0.90); GLUCOSE 69 MG/DL (70-104); MAGNESIUM 1.6 MG/DL (1.5-2.4); PHOSPHORUS 4.1 MG/DL (2.3-4.5); POTASSIUM 3.8 MMOL/L (3.5-5.1); SODIUM 133 MMOL/L (135-145); TOTAL CARBON DIOXIDE 27.1 MMOL/L (24-32); TOTAL PROTEIN 5.2 G/DL (6.4-8.2); eGFR > 90 ML/MIN
[2018-06-18] MEDS: isosorbide mononitrate 30mg tab.SR.24H PO SCH (07:18)
[2018-06-18] MEDS: ranolazine 500mg SR tablet (Q12H) PO SCH ×2 (07:18→21:10)
[2018-06-18] MEDS: potassium Cl oral solution 20 MEQ/15 ML PO SCH ×2 (07:18→21:09)
[2018-06-18] MEDS: atorvastatin 20mg tablet PO SCH (07:19)
[2018-06-18] MEDS: sennosides/docusate sodium tablet PO SCH ×2 (07:19→21:14)
[2018-06-18] MEDS: lactobacillus rhamnosus 10,000 MMU CELLS/CAPSULE PO SCH ×2 (07:19→21:09)
[2018-06-18] MEDS: furosemide 40mg/4ml inj IV SCH ×2 (07:25→21:09)
[2018-06-18] MEDS: enoxaparin 30mg/0.3ml syringe SUBCUT SCH ×2 (07:25→21:11)
[2018-06-18] MEDS: enoxaparin 40mg/0.4ml syringe SUBCUT SCH ×2 (07:25→21:12)
[2018-06-18] MEDS: pantoprazole 40 MG vial IV SCH (07:25)
[2018-06-18] MEDS: CefTRIAXone 2gm/D5W 50ml 50 ML IV SCH (07:25)
[2018-06-18] MEDS: K and/or MAG REPLACEMENT MC SCH (07:37)
[2018-06-18] MEDS: metoprolol tartrate 25mg tablet PO SCH ×2 (08:00→21:19)
[2018-06-18] MEDS: methylnaltrexone br 12mg/0.6ml inj***SubQ only SQ SCH (11:28)
[2018-06-18] MEDS: insulin glargine (Lantus) pen - multi-dose SQ SCH (21:18)
[2018-06-19] VITALS (24 sets, daily range): BP systolic 83–137; BP diastolic 45–65
[2018-06-19] MEDS: amiodarone/D5 360MG/200ML BAG 200 ML IV SCH (00:50)
[2018-06-19] MEDS: fat emulsion IV 100 ML, MVI, adult No.4 with vit. K 5 ML, Trace element-5 inj. 0.5 ML i... IV SCH ×8 (00:50→15:16)
[2018-06-19] MEDS: ondansetron/PF 4mg/2ml inj IV PRN ×2 (01:56→19:48)
[2018-06-19] MEDS: diltiazem 30mg tablet PO SCH ×4 (01:56→19:46)
[2018-06-19] MEDS: insulin regular, human vial - multi-dose SQ SCH ×4 (02:42→20:32)
[2018-06-19] MEDS: ipratropium/albuterol 3ml nebule NEB SCH ×4 (02:50→21:11)
[2018-06-19] MEDS: HYDROmorphone inj. 0.5 MG/0.5 ML DISP.SYRIN IV PRN (04:04)
[2018-06-19 04:35] LABS: BASOPHILS % (AUTO) 0.2 % (0-1); EOSINOPHILS # (AUTO) 0.2 X10'3 (0-0.9); EOSINOPHILS % (AUTO) 1.6 % (0-6); HEMATOCRIT 27.8 % (35.0-45.0); HEMOGLOBIN 9.3 g/dl (12.0-16.0); LYMPHOCYTES # (AUTO) 0.3 X10'3 (1.1-4.8); LYMPHOCYTES % (AUTO) 3.6 % (21-51); MEAN CORPUSCULAR HEMOGLOBIN 32.2 PG (27.0-31.0); MEAN CORPUSCULAR HGB CONC 33.3 % (33.0-36.5); MEAN CORPUSCULAR VOLUME 96.8 FL (78-98); MEAN PLATELET VOLUME 9.1 FL (7.4-10.4); MONOCYTES # (AUTO) 1.1 X10'3 (0-0.9); MONOCYTES % (AUTO) 11.3 % (2-12); NEUTROPHILS # (AUTO) 7.9 X10'3 (1.8-7.7); NEUTROPHILS % (AUTO) 83.3 % (42-75); PLATELET COUNT 348 X10'3 (140-440); RED BLOOD COUNT 2.87 X10'6 (4.20-5.60); RED CELL DISTRIBUTION WIDTH 15.1 % (11.5-14.5); WHITE BLOOD COUNT 9.5 X10'3 (4.5-11.0)
[2018-06-19 07:40] LABS: ALANINE AMINOTRANSFERASE 28 U/L (12-78); ALBUMIN 1.7 G/DL (3.4-5.0); ALBUMIN/GLOBULIN RATIO 0.5 (1.1-1.5); ALKALINE PHOSPHATASE 95 IU/L (46-116); ANION GAP 6 (8-16); ASPARTATE AMINO TRANSFERASE 20 U/L (10-37); BILIRUBIN,TOTAL 0.2 MG/DL (0.1-1.0); BLOOD UREA NITROGEN 30 MG/DL (7-18); BUN/CREATININE RATIO 45.5 (6.6-38.0); CALCIUM 7.9 MG/DL (8.5-10.1); CHLORIDE 98 MMOL/L (99-107); CREATININE 0.66 MG/DL (0.40-0.90); GLUCOSE 74 MG/DL (70-104); MAGNESIUM 1.7 MG/DL (1.5-2.4); PHOSPHORUS 3.9 MG/DL (2.3-4.5); POTASSIUM 4.2 MMOL/L (3.5-5.1); SODIUM 134 MMOL/L (135-145); TOTAL CARBON DIOXIDE 29.9 MMOL/L (24-32); TOTAL PROTEIN 5.4 G/DL (6.4-8.2); TRIGLYCERIDES 54 MG/DL (20-135); eGFR 86 ML/MIN
[2018-06-19] MEDS: isosorbide mononitrate 30mg tab.SR.24H PO SCH (08:00)
[2018-06-19] MEDS: K and/or MAG REPLACEMENT MC SCH (08:00)
[2018-06-19] MEDS: sennosides/docusate sodium tablet PO SCH ×2 (08:35→19:47)
[2018-06-19] MEDS: potassium Cl oral solution 20 MEQ/15 ML PO SCH ×2 (08:35→19:47)
[2018-06-19] MEDS: pantoprazole 40 MG vial IV SCH (08:35)
[2018-06-19] MEDS: CefTRIAXone 2gm/D5W 50ml 50 ML IV SCH (08:36)
[2018-06-19] MEDS: ranolazine 500mg SR tablet (Q12H) PO SCH ×2 (08:36→19:47)
[2018-06-19] MEDS: metoprolol tartrate 25mg tablet PO SCH ×2 (08:36→19:47)
[2018-06-19] MEDS: furosemide 40mg/4ml inj IV SCH ×2 (08:36→19:46)
[2018-06-19] MEDS: lactobacillus rhamnosus 10,000 MMU CELLS/CAPSULE PO SCH ×2 (08:36→19:47)
[2018-06-19] MEDS: enoxaparin 40mg/0.4ml syringe SUBCUT SCH ×2 (08:37→19:47)
[2018-06-19] MEDS: enoxaparin 30mg/0.3ml syringe SUBCUT SCH ×2 (08:37→19:48)
[2018-06-19] MEDS: atorvastatin 20mg tablet PO SCH (08:50)
[2018-06-19] MEDS ORDERED: HYDROmorphone 1 mg/ml syringe ONE (11:35)
[2018-06-19] MEDS: HYDROmorphone 1 mg/ml syringe IV PRN ×3 (11:48→20:34)
[2018-06-19] MEDS ORDERED: diatrozoate meglu/diatrozoate sod (37% iodine) 120ML oral solution ONE (13:18)
[2018-06-19] MEDS: amiodarone 200mg tablet PO SCH (19:46)
[2018-06-19] MEDS: acetaminophen 325mg tablet PO PRN (19:48)
[2018-06-19] MEDS: insulin glargine (Lantus) pen - multi-dose SQ SCH (20:31)
[2018-06-20] VITALS (24 sets, daily range): BP systolic 93–134; BP diastolic 40–79
[2018-06-20] MEDS: normal saline 1000ml 1,000 ML IV SCH (00:21)
[2018-06-20] MEDS: HYDROmorphone 1 mg/ml syringe IV PRN ×4 (00:21→20:00)
[2018-06-20] MEDS: diltiazem 30mg tablet PO SCH ×2 (02:38→07:56)
[2018-06-20] MEDS: fat emulsion IV 100 ML, MVI, adult No.4 with vit. K 5 ML, Trace element-5 inj. 0.5 ML i... IV SCH ×8 (02:39→15:30)
[2018-06-20] MEDS: insulin regular, human vial - multi-dose SQ SCH ×4 (02:46→22:04)
[2018-06-20] MEDS: ipratropium/albuterol 3ml nebule NEB SCH ×4 (03:06→20:38)
[2018-06-20] MEDS: HYDROcodone/acetaminophen 5mg/325mg tablet PO PRN ×3 (04:40→21:33)
[2018-06-20] MEDS: CefTRIAXone 2gm/D5W 50ml 50 ML IV SCH (07:51)
[2018-06-20] MEDS: enoxaparin 40mg/0.4ml syringe SUBCUT SCH ×2 (07:51→19:12)
[2018-06-20] MEDS: enoxaparin 30mg/0.3ml syringe SUBCUT SCH ×2 (07:55→19:11)
[2018-06-20] MEDS: methylnaltrexone br 12mg/0.6ml inj***SubQ only SQ SCH (07:56)
[2018-06-20] MEDS: ranolazine 500mg SR tablet (Q12H) PO SCH ×2 (07:56→19:10)
[2018-06-20] MEDS: pantoprazole 40 MG vial IV SCH (07:56)
[2018-06-20] MEDS: lactobacillus rhamnosus 10,000 MMU CELLS/CAPSULE PO SCH ×2 (07:56→19:13)
[2018-06-20] MEDS: sennosides/docusate sodium tablet PO SCH ×2 (07:56→19:11)
[2018-06-20] MEDS: potassium Cl oral solution 20 MEQ/15 ML PO SCH ×2 (07:56→19:11)
[2018-06-20] MEDS: furosemide 40mg/4ml inj IV SCH ×2 (07:56→19:03)
[2018-06-20] MEDS: amiodarone 200mg tablet PO SCH ×2 (07:56→19:10)
[2018-06-20] MEDS: metoprolol tartrate 25mg tablet PO SCH ×2 (07:56→19:10)
[2018-06-20] MEDS: atorvastatin 20mg tablet PO SCH (07:56)
[2018-06-20] MEDS: K and/or MAG REPLACEMENT MC SCH (08:00)
[2018-06-20] MEDS: isosorbide mononitrate 30mg tab.SR.24H PO SCH (08:00)
[2018-06-20 11:05] LABS: BASOPHILS # (AUTO) 0.1 X10'3 (0-0.2); BASOPHILS % (AUTO) 0.6 % (0-1); EOSINOPHILS # (AUTO) 0.1 X10'3 (0-0.9); EOSINOPHILS % (AUTO) 0.6 % (0-6); HEMATOCRIT 27.4 % (35.0-45.0); HEMOGLOBIN 8.9 g/dl (12.0-16.0); LYMPHOCYTES # (AUTO) 0.5 X10'3 (1.1-4.8); LYMPHOCYTES % (AUTO) 4.8 % (21-51); MEAN CORPUSCULAR HEMOGLOBIN 31.4 PG (27.0-31.0); MEAN CORPUSCULAR HGB CONC 32.3 % (33.0-36.5); MEAN CORPUSCULAR VOLUME 97.2 FL (78-98); MONOCYTES % (AUTO) 9.5 % (2-12); NEUTROPHILS # (AUTO) 8.5 X10'3 (1.8-7.7); NEUTROPHILS % (AUTO) 84.5 % (42-75); PLATELET COUNT 353 X10'3 (140-440); RED BLOOD COUNT 2.82 X10'6 (4.20-5.60)
[2018-06-20] MEDS ORDERED: metoclopramide 5 mg/ml inj IV PRN (11:15)
[2018-06-20 11:23] LABS: ALANINE AMINOTRANSFERASE 28 U/L (12-78); ALBUMIN 1.7 G/DL (3.4-5.0); ALBUMIN/GLOBULIN RATIO 0.4 (1.1-1.5); ALKALINE PHOSPHATASE 100 IU/L (46-116); ANION GAP 8 (8-16); ASPARTATE AMINO TRANSFERASE 20 U/L (10-37); BILIRUBIN,TOTAL 0.1 MG/DL (0.1-1.0); BLOOD UREA NITROGEN 30 MG/DL (7-18); BUN/CREATININE RATIO 45.5 (6.6-38.0); CHLORIDE 97 MMOL/L (99-107); CREATININE 0.66 MG/DL (0.40-0.90); GLUCOSE 138 MG/DL (70-104); MAGNESIUM 1.7 MG/DL (1.5-2.4); PHOSPHORUS 3.7 MG/DL (2.3-4.5); POTASSIUM 4.4 MMOL/L (3.5-5.1); SODIUM 133 MMOL/L (135-145); TOTAL CARBON DIOXIDE 28.1 MMOL/L (24-32); TOTAL PROTEIN 5.5 G/DL (6.4-8.2); eGFR 86 ML/MIN
[2018-06-20] MEDS: metoclopramide 5 mg/ml inj IV SCH (19:04)
[2018-06-20] MEDS: insulin glargine (Lantus) pen - multi-dose SQ SCH (21:55)
[2018-06-21] VITALS (18 sets, daily range): BP systolic 134–157; BP diastolic 59–85
[2018-06-21] MEDS: HYDROmorphone 1 mg/ml syringe IV PRN ×3 (00:29→13:41)
[2018-06-21] MEDS: HYDROcodone/acetaminophen 5mg/325mg tablet PO PRN ×3 (01:39→09:22)
[2018-06-21] MEDS: metoclopramide 5 mg/ml inj IV SCH ×4 (01:40→20:00)
[2018-06-21] MEDS: ipratropium/albuterol 3ml nebule NEB SCH ×5 (02:25→20:55)
[2018-06-21] MEDS: insulin regular, human vial - multi-dose SQ SCH ×4 (02:43→22:02)
[2018-06-21] MEDS: fat emulsion IV 100 ML, MVI, adult No.4 with vit. K 5 ML, Trace element-5 inj. 0.5 ML i... IV SCH ×8 (04:07→17:00)
[2018-06-21] MEDS: pantoprazole 40mg Tablet.DR PO SCH (06:52)
[2018-06-21] MEDS: isosorbide mononitrate 30mg tab.SR.24H PO SCH (08:00)
[2018-06-21] MEDS: ranolazine 500mg SR tablet (Q12H) PO SCH ×2 (08:00→20:00)
[2018-06-21] MEDS: K and/or MAG REPLACEMENT MC SCH (08:00)
[2018-06-21] MEDS: sennosides/docusate sodium tablet PO SCH ×2 (08:00→20:01)
[2018-06-21] MEDS: metoprolol tartrate 25mg tablet PO SCH ×2 (08:24→20:01)
[2018-06-21] MEDS: potassium Cl oral solution 20 MEQ/15 ML PO SCH ×2 (08:24→20:01)
[2018-06-21] MEDS: furosemide 40mg/4ml inj IV SCH ×2 (08:25→20:00)
[2018-06-21] MEDS: lactobacillus rhamnosus 10,000 MMU CELLS/CAPSULE PO SCH ×2 (08:25→20:01)
[2018-06-21] MEDS: atorvastatin 20mg tablet PO SCH (08:25)
[2018-06-21] MEDS: enoxaparin 40mg/0.4ml syringe SUBCUT SCH ×3 (08:25→20:02)
[2018-06-21] MEDS: amiodarone 200mg tablet PO SCH ×2 (08:25→20:03)
[2018-06-21] MEDS: enoxaparin 30mg/0.3ml syringe SUBCUT SCH ×3 (08:26→20:02)
[2018-06-21 09:00] LABS: BASOPHILS % (AUTO) 0.1 % (0-1); EOSINOPHILS # (AUTO) 0.1 X10'3 (0-0.9); EOSINOPHILS % (AUTO) 0.5 % (0-6); HEMATOCRIT 30.7 % (35.0-45.0); LYMPHOCYTES # (AUTO) 0.7 X10'3 (1.1-4.8); LYMPHOCYTES % (AUTO) 4.9 % (21-51); MEAN CORPUSCULAR HEMOGLOBIN 31.9 PG (27.0-31.0); MEAN CORPUSCULAR HGB CONC 32.6 % (33.0-36.5); MEAN CORPUSCULAR VOLUME 97.8 FL (78-98); MEAN PLATELET VOLUME 8.7 FL (7.4-10.4); MONOCYTES # (AUTO) 0.8 X10'3 (0-0.9); NEUTROPHILS # (AUTO) 12.2 X10'3 (1.8-7.7); NEUTROPHILS % (AUTO) 88.5 % (42-75); PLATELET COUNT 390 X10'3 (140-440); RED BLOOD COUNT 3.13 X10'6 (4.20-5.60); RED CELL DISTRIBUTION WIDTH 15.1 % (11.5-14.5); WHITE BLOOD COUNT 13.8 X10'3 (4.5-11.0)
[2018-06-21 09:14] LABS: ALANINE AMINOTRANSFERASE 33 U/L (12-78); ALBUMIN 2.1 G/DL (3.4-5.0); ALBUMIN/GLOBULIN RATIO 0.5 (1.1-1.5); ALKALINE PHOSPHATASE 107 IU/L (46-116); ANION GAP 7 (8-16); ASPARTATE AMINO TRANSFERASE 17 U/L (10-37); BILIRUBIN,TOTAL 0.3 MG/DL (0.1-1.0); BLOOD UREA NITROGEN 30 MG/DL (7-18); BUN/CREATININE RATIO 51.7 (6.6-38.0); CALCIUM 8.5 MG/DL (8.5-10.1); CHLORIDE 97 MMOL/L (99-107); CREATININE 0.58 MG/DL (0.40-0.90); GLUCOSE 112 MG/DL (70-104); POTASSIUM 4.4 MMOL/L (3.5-5.1); SODIUM 134 MMOL/L (135-145); TOTAL CARBON DIOXIDE 29.7 MMOL/L (24-32); TOTAL PROTEIN 6.1 G/DL (6.4-8.2); eGFR > 90 ML/MIN
[2018-06-21] MEDS: insulin glargine (Lantus) pen - multi-dose SQ SCH (21:44)
[2018-06-22] MEDS: normal saline 1000ml 1,000 ML IV SCH
[2018-06-22] MEDS: metoclopramide 5 mg/ml inj IV SCH ×4 (02:11→20:38)
[2018-06-22 03:00] VITALS: BP 152/77
[2018-06-22] MEDS: ipratropium/albuterol 3ml nebule NEB SCH ×4 (03:11→20:16)
[2018-06-22] MEDS: fat emulsion IV 100 ML, MVI, adult No.4 with vit. K 5 ML, Trace element-5 inj. 0.5 ML i... IV SCH ×8 (04:35→16:03)
[2018-06-22 06:06] LABS: BASOPHILS % (AUTO) 0 % (0-1); EOSINOPHILS # (AUTO) 0.2 X10'3 (0-0.9); EOSINOPHILS % (AUTO) 1.7 % (0-6); HEMATOCRIT 32.7 % (35.0-45.0); HEMOGLOBIN 10.8 g/dl (12.0-16.0); LYMPHOCYTES # (AUTO) 0.7 X10'3 (1.1-4.8); LYMPHOCYTES % (AUTO) 5.5 % (21-51); MEAN PLATELET VOLUME 8.4 FL (7.4-10.4); MONOCYTES # (AUTO) 1.6 X10'3 (0-0.9); MONOCYTES % (AUTO) 12.6 % (2-12); NEUTROPHILS # (AUTO) 10.4 X10'3 (1.8-7.7); NEUTROPHILS % (AUTO) 80.2 % (42-75); PLATELET COUNT 445 X10'3 (140-440); RED BLOOD COUNT 3.37 X10'6 (4.20-5.60); RED CELL DISTRIBUTION WIDTH 15.1 % (11.5-14.5); WHITE BLOOD COUNT 12.9 X10'3 (4.5-11.0)
[2018-06-22 06:33] LABS: ALANINE AMINOTRANSFERASE 27 U/L (12-78); ALBUMIN 2.1 G/DL (3.4-5.0); ALBUMIN/GLOBULIN RATIO 0.5 (1.1-1.5); ALKALINE PHOSPHATASE 106 IU/L (46-116); ANION GAP 9 (8-16); ASPARTATE AMINO TRANSFERASE 15 U/L (10-37); BILIRUBIN,TOTAL 0.3 MG/DL (0.1-1.0); BLOOD UREA NITROGEN 27 MG/DL (7-18); BUN/CREATININE RATIO 48.2 (6.6-38.0); CALCIUM 8.3 MG/DL (8.5-10.1); CHLORIDE 95 MMOL/L (99-107); CREATININE 0.56 MG/DL (0.40-0.90); GLUCOSE 106 MG/DL (70-104); MAGNESIUM 1.8 MG/DL (1.5-2.4); POTASSIUM 3.6 MMOL/L (3.5-5.1); SODIUM 133 MMOL/L (135-145); TOTAL CARBON DIOXIDE 29.1 MMOL/L (24-32); TOTAL PROTEIN 6.3 G/DL (6.4-8.2); eGFR > 90 ML/MIN
[2018-06-22 07:00] VITALS: BP_SYST 128; BP_SYST 142; BP_DIAS 72; BP_DIAS 80
[2018-06-22] MEDS: K and/or MAG REPLACEMENT MC SCH (08:00)
[2018-06-22] MEDS: ranolazine 500mg SR tablet (Q12H) PO SCH ×2 (08:00→20:38)
[2018-06-22] MEDS: isosorbide mononitrate 30mg tab.SR.24H PO SCH (08:00)
[2018-06-22] MEDS: potassium Cl oral solution 20 MEQ/15 ML PO SCH ×2 (08:33→20:37)
[2018-06-22] MEDS: enoxaparin 30mg/0.3ml syringe SUBCUT SCH ×2 (08:35→20:40)
[2018-06-22] MEDS: enoxaparin 40mg/0.4ml syringe SUBCUT SCH ×2 (08:35→20:39)
[2018-06-22] MEDS: atorvastatin 20mg tablet PO SCH (08:36)
[2018-06-22] MEDS: pantoprazole 40mg Tablet.DR PO SCH (08:36)
[2018-06-22] MEDS: sennosides/docusate sodium tablet PO SCH ×2 (08:36→20:38)
[2018-06-22] MEDS: lactobacillus rhamnosus 10,000 MMU CELLS/CAPSULE PO SCH ×2 (08:37→20:38)
[2018-06-22] MEDS: furosemide 40mg/4ml inj IV SCH ×2 (08:37→20:38)
[2018-06-22] MEDS: amiodarone 200mg tablet PO SCH ×2 (08:39→20:38)
[2018-06-22] MEDS: metoprolol tartrate 25mg tablet PO SCH ×2 (08:42→20:38)
[2018-06-22] MEDS: methylnaltrexone br 12mg/0.6ml inj***SubQ only SQ SCH (08:43)
[2018-06-22] MEDS: insulin regular, human vial - multi-dose SQ SCH ×3 (10:27→22:38)
[2018-06-22 15:00] VITALS: BP 128/69
[2018-06-22] MEDS: HYDROcodone/acetaminophen 5mg/325mg tablet PO PRN ×2 (16:28→22:35)
[2018-06-22 19:00] VITALS: BP 126/69
[2018-06-22] MEDS: insulin glargine (Lantus) pen - multi-dose SQ SCH (22:39)
[2018-06-22 23:00] VITALS: BP 110/57
[2018-06-23] MEDS: metoclopramide 5 mg/ml inj IV SCH ×4 (01:50→20:41)
[2018-06-23] MEDS: insulin regular, human vial - multi-dose SQ SCH ×4 (02:10→21:15)
[2018-06-23 03:00] VITALS: BP 119/64
[2018-06-23] MEDS: HYDROcodone/acetaminophen 5mg/325mg tablet PO PRN ×4 (03:02→20:46)
[2018-06-23] MEDS: ipratropium/albuterol 3ml nebule NEB SCH ×4 (03:11→20:35)
[2018-06-23] MEDS: fat emulsion IV 100 ML, MVI, adult No.4 with vit. K 5 ML, Trace element-5 inj. 0.5 ML i... IV SCH ×8 (05:03→15:55)
[2018-06-23 06:57] VITALS: BP 107/51
[2018-06-23 07:42] LABS: MAGNESIUM 1.8 MG/DL (1.5-2.4)
[2018-06-23] MEDS: K and/or MAG REPLACEMENT MC SCH (08:00)
[2018-06-23] MEDS: isosorbide mononitrate 30mg tab.SR.24H PO SCH (08:00)
[2018-06-23] MEDS: ranolazine 500mg SR tablet (Q12H) PO SCH ×2 (09:07→20:39)
[2018-06-23] MEDS: sennosides/docusate sodium tablet PO SCH ×2 (09:07→20:42)
[2018-06-23] MEDS: enoxaparin 40mg/0.4ml syringe SUBCUT SCH ×2 (09:08→21:27)
[2018-06-23] MEDS: metoprolol tartrate 25mg tablet PO SCH ×2 (09:08→20:43)
[2018-06-23] MEDS: amiodarone 200mg tablet PO SCH ×2 (09:08→20:42)
[2018-06-23] MEDS: furosemide 40mg/4ml inj IV SCH ×2 (09:09→20:40)
[2018-06-23] MEDS: enoxaparin 30mg/0.3ml syringe SUBCUT SCH ×2 (09:09→21:20)
[2018-06-23] MEDS: potassium Cl oral solution 20 MEQ/15 ML PO SCH ×2 (09:10→20:42)
[2018-06-23] MEDS: pantoprazole 40mg Tablet.DR PO SCH (09:20)
[2018-06-23] MEDS: atorvastatin 20mg tablet PO SCH (09:21)
[2018-06-23] MEDS: lactobacillus rhamnosus 10,000 MMU CELLS/CAPSULE PO SCH ×2 (09:21→20:45)
[2018-06-23 12:09] LABS: BASOPHILS % (AUTO) 0.3 % (0-1); EOSINOPHILS # (AUTO) 0.1 X10'3 (0-0.9); EOSINOPHILS % (AUTO) 0.7 % (0-6); HEMATOCRIT 32.9 % (35.0-45.0); HEMOGLOBIN 10.7 g/dl (12.0-16.0); LYMPHOCYTES # (AUTO) 0.8 X10'3 (1.1-4.8); LYMPHOCYTES % (AUTO) 6.8 % (21-51); MEAN CORPUSCULAR HEMOGLOBIN 31.8 PG (27.0-31.0); MEAN CORPUSCULAR HGB CONC 32.5 % (33.0-36.5); MEAN CORPUSCULAR VOLUME 97.7 FL (78-98); MEAN PLATELET VOLUME 8.1 FL (7.4-10.4); MONOCYTES # (AUTO) 1.4 X10'3 (0-0.9); MONOCYTES % (AUTO) 11.9 % (2-12); NEUTROPHILS # (AUTO) 9.4 X10'3 (1.8-7.7); NEUTROPHILS % (AUTO) 80.3 % (42-75); PLATELET COUNT 428 X10'3 (140-440); RED BLOOD COUNT 3.37 X10'6 (4.20-5.60); RED CELL DISTRIBUTION WIDTH 15.1 % (11.5-14.5); WHITE BLOOD COUNT 11.7 X10'3 (4.5-11.0)
[2018-06-23 12:23] LABS: ALANINE AMINOTRANSFERASE 42 U/L (12-78); ALBUMIN 2.1 G/DL (3.4-5.0); ALBUMIN/GLOBULIN RATIO 0.5 (1.1-1.5); ALKALINE PHOSPHATASE 104 IU/L (46-116); ANION GAP 12 (8-16); ASPARTATE AMINO TRANSFERASE 25 U/L (10-37); BILIRUBIN,TOTAL 0.2 MG/DL (0.1-1.0); BLOOD UREA NITROGEN 32 MG/DL (7-18); BUN/CREATININE RATIO 48.5 (6.6-38.0); CALCIUM 7.9 MG/DL (8.5-10.1); CHLORIDE 95 MMOL/L (99-107); CREATININE 0.66 MG/DL (0.40-0.90); GLUCOSE 186 MG/DL (70-104); MAGNESIUM 1.7 MG/DL (1.5-2.4); PHOSPHORUS 3.2 MG/DL (2.3-4.5); POTASSIUM 3.7 MMOL/L (3.5-5.1); SODIUM 133 MMOL/L (135-145); TOTAL CARBON DIOXIDE 26.1 MMOL/L (24-32); TOTAL PROTEIN 6.2 G/DL (6.4-8.2); eGFR 86 ML/MIN
[2018-06-23 15:00] VITALS: BP 141/67
[2018-06-23] MEDS: dextrose 50%-water 50ml dispensing syringe IV PRN (17:04)
[2018-06-23 19:00] VITALS: BP 146/71
[2018-06-23] MEDS: insulin glargine (Lantus) pen - multi-dose SQ SCH (21:26)
[2018-06-23 23:00] VITALS: BP_SYST 116; BP_SYST 151; BP_DIAS 53; BP_DIAS 61
[2018-06-24] MEDS: normal saline 1000ml 1,000 ML IV SCH
== END 2018-06-24 01:26 | DRG 853 ==
LOC: ER 13:06 → ED HOLD 15:04 → SUR 3N 17:35 → CICU 2S 19:10 → PCU 3S 06-21 16:20
PROVIDERS: ADMIT Family Medicine; ATTEND Internal Medicine Critical Care Medicine
PROC: BW211ZZ Computerized Tomography (CT Scan) of Abdomen and Pelvis using Low Osmolar Contrast (ICD-10-PCS; 2018-06-03)
PROC: 02HV33Z Insertion of Infusion Device into Superior Vena Cava, Percutaneous Approach (ICD-10-PCS; 2018-06-03)
PROC: 5A1945Z Respiratory Ventilation, 24-96 Consecutive Hours (ICD-10-PCS; 2018-06-04)
PROC: 0D1L0Z4 Bypass Transverse Colon to Cutaneous, Open Approach (ICD-10-PCS; 2018-06-04)
PROC: 0DBL0ZZ Excision of Transverse Colon, Open Approach (ICD-10-PCS; principal; 2018-06-04 16:21)
PROC: 3E02340 Introduction of Influenza Vaccine into Muscle, Percutaneous Approach (ICD-10-PCS; 2018-06-07)
PROC: 3E0436Z Introduction of Nutritional Substance into Central Vein, Percutaneous Approach (ICD-10-PCS; 2018-06-08)
PROC: 5A2204Z Restoration of Cardiac Rhythm, Single (ICD-10-PCS; 2018-06-13)
PROC: 5A09457 Assistance with Respiratory Ventilation, 24-96 Consecutive Hours, Continuous Positive Airway Pressure (ICD-10-PCS; 2018-06-15)
PROC: BW211ZZ Computerized Tomography (CT Scan) of Abdomen and Pelvis using Low Osmolar Contrast (ICD-10-PCS; 2018-06-16)
PROC: 0JH63XZ Insertion of Tunneled Vascular Access Device into Chest Subcutaneous Tissue and Fascia, Percutaneous Approach (ICD-10-PCS; 2018-06-17)
PROC: 02HV33Z Insertion of Infusion Device into Superior Vena Cava, Percutaneous Approach (ICD-10-PCS; 2018-06-17)
PROC: B548ZZA Ultrasonography of Superior Vena Cava, Guidance (ICD-10-PCS; 2018-06-17)
PROC: 5A09457 Assistance with Respiratory Ventilation, 24-96 Consecutive Hours, Continuous Positive Airway Pressure (ICD-10-PCS; 2018-06-19)
DX: A41.9 Sepsis, unspecified organism (principal); K65.9 Peritonitis, unspecified; J18.1 Lobar pneumonia, unspecified organism; J96.90 Respiratory failure, unspecified, unspecified whether with hypoxia or hypercapnia; K63.1 Perforation of intestine (nontraumatic); K55.9 Vascular disorder of intestine, unspecified; E87.2 Acidosis; K57.92 Diverticulitis of intestine, part unspecified, without perforation or abscess without bleeding; N17.9 Acute kidney failure, unspecified; K56.7 Ileus, unspecified; B96.1 Klebsiella pneumoniae [K. pneumoniae] as the cause of diseases classified elsewhere; B96.89 Other specified bacterial agents as the cause of diseases classified elsewhere; E11.9 Type 2 diabetes mellitus without complications; E78.00 Pure hypercholesterolemia, unspecified; E83.52 Hypercalcemia; E86.0 Dehydration; I48.0 Paroxysmal atrial fibrillation; G14 Postpolio syndrome; I25.10 Atherosclerotic heart disease of native coronary artery without angina pectoris; I50.9 Heart failure, unspecified; K21.9 Gastro-esophageal reflux disease without esophagitis; M79.7 Fibromyalgia; Z60.2 Problems related to living alone; Z66 Do not resuscitate; Z90.13 Acquired absence of bilateral breasts and nipples; Z90.49 Acquired absence of other specified parts of digestive tract; Z90.710 Acquired absence of both cervix and uterus; Z95.5 Presence of coronary angioplasty implant and graft; Z23 Encounter for immunization; Z88.5 Allergy status to narcotic agent; Z88.8 Allergy status to other drugs, medicaments and biological substances; Z91.041 Radiographic dye allergy status; Z79.899 Other long term (current) drug therapy; Z79.82 Long term (current) use of aspirin; Z95.0 Presence of cardiac pacemaker; Z85.3 Personal history of malignant neoplasm of breast; Z87.891 Personal history of nicotine dependence; Z82.0 Family history of epilepsy and other diseases of the nervous system; Z82.49 Family history of ischemic heart disease and other diseases of the circulatory system
CPT/HCPCS: 36415; 36558; 36600; 71045; 74018; 74176; 74177; 74270; 76775; 76937; 77001; 80053; 81001; 82150; 82803; 82948; 83036; 83605; 83690; 83735; 84100; 84132; 84134; 84145; 84443; 84478; 85018; 85025; 85610; 87040; 87045; 87046; 87070; 87075; 87077; 87088; 87186; 87324; 87449; 88307; 89055; 92616; 94003; 94640; 94660; 94760; 96365; 96375; 97110; 97116; 97162; 97530; 99285; A4421; A4649; A5052; A6253; A6258; A6446; A7000; A7015; A9270; C1751; C1894; C9113; J0282; J0360; J0696; J1170; J1200; J1265; J1450; J1644; J1650; J1815; J1940; J2250; J2370; J2405; J2543; J2704; J2765; J3010; J3480; J3490; J7030; J7060; P9045; Q9963; Q9967

== ENCOUNTER 2018-09-15 08:10 | Day surgery (SDC) | payer MEDICAID, OTHER ==
[~2018-09-15] VITALS: Ht 162.6 cm; Wt 69.1 kg
[~2018-09-15 08:10] MED LIST changes: -GABA-338 PO; -HYDR-4353 PO; -LUTE20TA PO; -OMEP20TA5 PO; +PREG150C PO; +ROSU5TAB11 PO; -crestor PO; -omega xl PO
[2018-09-15] MEDS ORDERED: LIDOcaine 1% 30ml preserv. free vial SQ STA (08:40)
[2018-09-15] MEDS ORDERED: LIDOcaine 1%/PF 5ML 10 MG/ML VIAL ONE (08:47)
[2018-09-15 09:00] VITALS: BP 143/71
[2018-09-15] MEDS ORDERED: SENN8.6T61 PO (09:27)
[2018-09-15] MEDS ORDERED: PRAV80TA3 PO (09:27)
[2018-09-15] MEDS ORDERED: HYDR-4353 PO (09:27)
[2018-09-15] MEDS ORDERED: PANT-47 PO (09:27)
[2018-09-15] MEDS ORDERED: PRIM250T48 PO (09:27)
[2018-09-15] MEDS ORDERED: COU4T PO (09:27)
[2018-09-15] MEDS ORDERED: POLY17PO10 PO (09:27)
[2018-09-15] MEDS ORDERED: OXYC10TA57 PO (09:27)
[2018-09-15] MEDS ORDERED: PANT20TA3 PO (09:27)
[2018-09-15] MEDS ORDERED: LIDO700A47 (09:27)
[2018-09-15] MEDS ORDERED: ONDA4TAB6 PO (09:27)
--- NOTE | 2018-09-15 11:24 | NUR ---
Patient came in for tdc groshong catheter removal, Matt colby waived the labs as patient is a hard stick, she is unaware of last time taking coumadin as [facility]. Vitals stable, tdc removed, patient tolerated procedure well, dressing applied, pressure dressing as well, daughter was at bedside, dressing was noted to take off at 2 pm, tagaderm can come off in 2 days, and steristrips in one week. Patient was picked up by [facility] without notification to me, so discharge was not signed.
== END 2018-09-15 10:25 ==
LOC: SSTAY O 08:10
PROVIDERS: ATTEND Radiology Diagnostic Radiology
DX: Z45.2 Encounter for adjustment and management of vascular access device (principal); K55.049 Acute infarction of large intestine, extent unspecified; I25.2 Old myocardial infarction; I50.9 Heart failure, unspecified; G47.33 Obstructive sleep apnea (adult) (pediatric); E11.9 Type 2 diabetes mellitus without complications; I25.10 Atherosclerotic heart disease of native coronary artery without angina pectoris; M79.7 Fibromyalgia; Z85.3 Personal history of malignant neoplasm of breast; F17.210 Nicotine dependence, cigarettes, uncomplicated; Z95.5 Presence of coronary angioplasty implant and graft; Z90.710 Acquired absence of both cervix and uterus; Z90.13 Acquired absence of bilateral breasts and nipples; Z79.899 Other long term (current) drug therapy; Z88.6 Allergy status to analgesic agent; Z88.8 Allergy status to other drugs, medicaments and biological substances; Z98.890 Other specified postprocedural states
CPT/HCPCS: 36589; J2001